=== PATIENT | female | born 1940 | race Caucasian/White ===

== ENCOUNTER 2018-11-12 00:12 | Outpatient (CLI) | payer MEDICARE, SELFPAY ==
--- NOTE | 2018-11-12 08:00 | DI.MAMMO_ITS ---
SYMPTOM/DIAGNOSIS: SCREENING, Z12.31 MAMMOGRAMS: Mammograms were interpreted according to the usual protocol including computer analysis with CAD system, tomosynthesis and C view imaging. Comparison is made with prior examinations. Breast density, Category A. No suspicious masses or microcalcifications are seen. There has been no significant change compared to the prior examinations. IMPRESSION: No evidence for malignancy. Yearly mammography is recommended. Category 1. MQSA ASSESSMENT OF FINDINGS: Negative. Category 1. Patient will receive a letter notifying them of these results. BI-RAD category A. The breasts are almost entirely fatty.
== END 2018-11-12 00:32 ==
PROVIDERS: PCP Family Medicine; Visit Provider Family Medicine
DX: Z12.31 Encounter for screening mammogram for malignant neoplasm of breast (principal)
CPT/HCPCS: 77063; 77067

== ENCOUNTER 2019-08-24 02:28 | Outpatient (CLI) | payer MEDICARE, SELFPAY ==
[2019-08-24 11:23] LABS: ALT 27 U/L (14-59); AST 16 U/L (15-37); Albumin 4.2 g/dL (3.4-5.0); Alkaline Phosphatase 66 U/L (46-116); Anion Gap 9.6 mmol/L (3-11); BUN 19 mg/dL (7-18); Bilirubin, Total 0.5 mg/dL (0.2-1.0); CO2 27.4 mmol/L (21.0-32.0); CREATININE 1.42 mg/dL (0.55-1.02); Calcium 9.3 mg/dL (8.5-10.1); Calculated LDL 50 mg/dL; Chloride 105 mmol/L (98-107); Cholesterol 149 mg/dL (50-200); Estimated GFR 35.78 (mL/min/1.73m2); Glucose 90 mg/dL (70-100); HDL Cholesterol 74 mg/dL (40-60); Potassium 4.7 mmol/L (3.5-5.1); Sodium 142 mmol/L (136-145); Triglyceride 128 mg/dL (30-150)
== END 2019-08-24 02:48 ==
PROVIDERS: PCP Family Medicine; Visit Provider Family Medicine
DX: I10 Essential (primary) hypertension (principal)
CPT/HCPCS: 36415; 80053; 80061

== ENCOUNTER 2020-07-20 07:30 | Outpatient (CLI) | payer MEDICARE, SELFPAY ==
[2020-07-23 06:01] LABS: Patient Race White; SARS-CoV-2 RNA Undetected (Undetected); SARS-CoV-2 Specimen Source Nasopharynx
== END 2020-07-20 07:50 ==
PROVIDERS: PCP Family Medicine; Visit Provider Nurse Practitioner
DX: R50.9 Fever, unspecified (principal); J34.89 Other specified disorders of nose and nasal sinuses; Z11.59 Encounter for screening for other viral diseases
CPT/HCPCS: U0003

== ENCOUNTER 2020-07-26 21:47 | Outpatient (REF) | payer MEDICARE, SELFPAY ==
[2020-07-26 21:09] LABS: HCT 38.6 % (36.0-46.0); HGB 12.9 g/dL (11.2-15.7); MCH 30.6 pg (27.0-33.0); MCHC 33.4 % (32.0-36.0); MCV 91.7 fL (80-95); MPV 10.3 fL (8.0-11.0); Platelet Count 240 10^3/uL (130-400); RBC 4.21 10^6/uL (3.93-5.22); RDW-SD 43.6 fL; WBC 9.18 10^3/uL (4.4-10.8)
== END 2020-07-26 22:07 ==
LOC: LBN 21:47
PROVIDERS: PCP Family Medicine; Visit Provider Nurse Practitioner Family
DX: I10 Essential (primary) hypertension (principal); D53.9 Nutritional anemia, unspecified; E78.5 Hyperlipidemia, unspecified
CPT/HCPCS: 80048; 80061; 85027

== ENCOUNTER 2020-08-16 04:12 | Outpatient (CLI) | payer MEDICARE, SELFPAY ==
[2020-08-16 08:51] LABS: Anion Gap 11.9 mmol/L (3-11); BUN 32 mg/dL (7-18); CO2 23.1 mmol/L (21.0-32.0); CREATININE 1.61 mg/dL (0.55-1.02); Calcium 9.2 mg/dL (8.5-10.1); Calculated LDL 57 mg/dL (<100); Chloride 106 mmol/L (98-107); Cholesterol 158 mg/dL (<200); Estimated GFR 30.87 (mL/min/1.73m2); Glucose 79 mg/dL (74-106); HDL Cholesterol 58 mg/dL (40-60); Potassium 4.1 mmol/L (3.5-5.1); Sodium 141 mmol/L (136-145); Triglyceride 216 mg/dL (<150)
[2020-08-16 08:52] LABS: COMMENT (LAB VIEW ONLY) 140.75 mg/dL; Microalb ug/mg Crea 9.8 ug/mg Cr
== END 2020-08-16 04:32 ==
PROVIDERS: Nurse Practitioner Family; PCP Family Medicine; Visit Provider Family Medicine
DX: I10 Essential (primary) hypertension (principal); E78.5 Hyperlipidemia, unspecified
CPT/HCPCS: 36415; 80048; 80061; 82043; 82570

== ENCOUNTER 2021-07-18 01:44 | Outpatient (CLI) | payer MEDICARE, SELFPAY ==
[2021-07-18 08:55] LABS: Bilirubin Negative (Negative); Blood Negative (Negative); Clarity Clear (Clear); Glucose Negative (Negative); Ketones Negative (Negative); Leukocyte Esterase Moderate (Negative); Nitrite Negative (Negative); Urobilinogen 0.2 EU/dL (Up TO 0.2); pH 5.5 (5-8)
[2021-07-18 10:07] LABS: ALT 27 U/L (14-59); AST 15 U/L (15-37); Albumin 4.4 g/dL (3.4-5.0); Alkaline Phosphatase 62 U/L (46-116); BUN 32 mg/dL (7-18); Bilirubin, Total 0.5 mg/dL (0.2-1.0); CREATININE 1.5 mg/dL (0.55-1.02); Calcium 9.1 mg/dL (8.5-10.1); Calculated LDL 55 mg/dL (<100); Chloride 105 mmol/L (98-107); Cholesterol 161 mg/dL (<200); Estimated GFR 33.41 (mL/min/1.73m2); Glucose 82 mg/dL (74-106); HDL Cholesterol 67 mg/dL (40-60); Potassium 4.3 mmol/L (3.5-5.1); Sodium 141 mmol/L (136-145); Total Protein 7.3 g/dL (6.4-8.2); Triglyceride 197 mg/dL (<150)
== END 2021-07-18 01:45 | disposition home or self-care (01) ==
LOC: LBO 01:44
PROVIDERS: PCP Family Medicine; Visit Provider Family Medicine
DX: N18.9 Chronic kidney disease, unspecified (principal); I10 Essential (primary) hypertension; E78.5 Hyperlipidemia, unspecified; D53.9 Nutritional anemia, unspecified; R82.998 Other abnormal findings in urine
CPT/HCPCS: 36415; 80053; 80061; 81003; 81015; 87086

== ENCOUNTER 2021-08-22 01:35 | Outpatient (CLI) | payer MEDICARE, SELFPAY ==
--- NOTE | 2021-08-22 07:00 | DI.RAD_ITS ---
Exam(s) XR LUMBAR SPINE COMPLETE EXAM: XR LUMBAR SPINE COMPLETE CLINICAL HISTORY: increased low back pain x 1year,M54.50. TECHNIQUE: 2D digital imaging was performed. COMPARISON: No exams were available for comparison FINDINGS: There is osteopenia. No compression fractures but there is advanced anterolisthesis of L5 upon S1, w ith approximately 2.3 cm anterior slippage of L5 upon S1. Also advanced disc space narrowing at L5-S 1 level. There is also mild disc space narrowing at L2-3 level. Multilevel degenerative facet joint changes. Some degenerative changes in the SI joints but no ankylosis. IMPRESSION: Advanced anterolisthesis of L5 upon S1 noted. 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 DATA REPOSITORY: RADIATION DOSE DELIVERED:
--- NOTE | 2021-08-22 07:55 | DI.MAMMO_ITS ---
Exam(s) MAMMO SCREENING EXAM: MAMMO SCREENING CLINICAL HISTORY: screening,Z12.39. TECHNIQUE: Bilateral full field digital CC and MLO mammographic images were obtained with 3D tomosyn thesis and utilizing computer aided detection (CAD). COMPARISON: Prior mammograms dating back to 2011, the most recent being October 2018. FINDINGS: There are no CAD designations. Asymmetric densities in the left breast are unchanged from prior studies. There are no new spiculated masses nor malignant appearing microcalcification groups. There is no significant architectural distortion nor skin thickening-retraction. IMPRESSION: No radiographic evidence of malignancy. BI-RADS Category 1 - Negative Breast Density - Category B - Scattered areas of fibroglandular density Breast density Category C or D implies that the patient has dense breast tissue. Dense breast tissue can make it harder to find cancer on a mammogram. Dense breast tissue is also associated with an incr eased risk of breast cancer. This information about the result of the mammogram report was provided to the patient to raise their awareness. Use this report when you speak with the patient about their risks for breast cancer, which includes their family history. At that time, you may recommend additional screening tests (Ultrasoun d or MRI) as these tests may add significant information. A negative radiographic report should not delay biopsy if a dominant or clinically suspicious mass is present. Up to ten percent of cancers are not identified on mammography. A negative report may reinforce clinical impression. Adenosis and dense breasts may obscure an underlying neoplasm. False positive reports average 6 to 10%. Patient will receive a letter notifying them of these results.
== END 2021-08-22 01:55 ==
PROVIDERS: PCP Family Medicine; Visit Provider Family Medicine
DX: G89.29 Other chronic pain (principal); M54.59 Other low back pain; Z12.31 Encounter for screening mammogram for malignant neoplasm of breast; M43.17 Spondylolisthesis, lumbosacral region
CPT/HCPCS: 77063; 77067; 72110

== ENCOUNTER 2022-06-17 03:03 | Outpatient (CLI) | payer MEDICARE, SELFPAY ==
[2022-06-17 08:44] LABS: HCT 37.1 % (36.0-46.0); HGB 12.8 g/dL (11.2-15.7); MCH 31.2 pg (27.0-33.0); MCHC 34.5 % (32.0-36.0); MCV 91 fL (80-95); MPV 9.7 fL (8.0-11.0); Platelet Count 216 10^3/uL (130-400); RDW 12.5 % (11.7-14.6); RDW-SD 41.3 fL; WBC 9.04 10^3/uL (4.4-10.8)
[2022-06-17 09:28] LABS: ALT 24 U/L (14-59); AST 19 U/L (15-37); Albumin 4.2 g/dL (3.4-5.0); Alkaline Phosphatase 63 U/L (46-116); Anion Gap 12.1 mmol/L (3-11); BUN 35 mg/dL (7-18); Bilirubin, Total 0.4 mg/dL (0.2-1.0); CO2 23.9 mmol/L (21.0-32.0); CREATININE 1.7 mg/dL (0.55-1.02); Calcium 9.4 mg/dL (8.5-10.1); Chloride 106 mmol/L (98-107); Estimated GFR 28.85 (mL/min/1.73m2); Glucose 93 mg/dL (74-106); Potassium 4.4 mmol/L (3.5-5.1); Sodium 142 mmol/L (136-145); Total Protein 7.6 g/dL (6.4-8.2)
== END 2022-06-17 03:04 | disposition home or self-care (01) ==
PROVIDERS: PCP Family Medicine; Visit Provider Family Medicine
DX: N18.9 Chronic kidney disease, unspecified (principal); K51.90 Ulcerative colitis, unspecified, without complications
CPT/HCPCS: 36415; 80053; 85027

== ENCOUNTER 2022-08-11 03:28 | Outpatient (CLI) | payer MEDICARE, SELFPAY ==
[2022-08-11 16:46] LABS: PROTEIN 13.7 mg/dL (0.0-11.9)
== END 2022-08-11 03:29 | disposition home or self-care (01) ==
LOC: LBO 03:29
PROVIDERS: PCP Family Medicine; Visit Provider Family Medicine
DX: N18.4 Chronic kidney disease, stage 4 (severe) (principal)
CPT/HCPCS: 84156

== ENCOUNTER 2022-08-18 02:50 | Outpatient (CLI) | payer MEDICARE, SELFPAY ==
[2022-08-18 12:39] LABS: Magnesium 1.8 mg/dL (1.8-2.4); PHOSPHORUS 3.9 mg/dL (2.6-4.7)
[2022-08-18 12:55] LABS: Bilirubin Negative (Negative); Blood Negative (Negative); Clarity Sl Cloudy (Clear); Glucose Negative (Negative); Ketones Negative (Negative); Leukocyte Esterase Small (Negative); Nitrite Positive (Negative); Specific Gravity 1.025 (1.005-1.025); Urobilinogen 0.2 EU/dL (Up TO 0.2); pH 5.5 (5-8)
[2022-08-18 12:56] LABS: Bacteria Moderate HPF (Negative); C & S Indicated? Yes; Casts Negative LPF (Negative); Crystals Negative HPF (Negative); Epithelial Cells Few HPF (Negative); Mucus Negative (Negative); RBC Negative HPF (0-2)
[2022-08-18 13:16] LABS: Vitamin D 25 Total 24.2 ng/mL (30-100)
[2022-08-18 23:31] LABS: Parathyroid Hormone,Intact 62 pg/mL (19-88)
[2022-08-22 17:12] LABS: 1,25-Dihydroxyvitamin D 28 pg/mL (18-78)
== END 2022-08-18 02:51 | disposition home or self-care (01) ==
LOC: LOS 02:50
PROVIDERS: PCP Family Medicine; Visit Provider Family Medicine
DX: I12.9 Hypertensive chronic kidney disease with stage 1 through stage 4 chronic kidney disease, or unspecified chronic kidney disease (principal); N18.4 Chronic kidney disease, stage 4 (severe); R30.0 Dysuria
CPT/HCPCS: 36415; 82306; 87077; 81003; 81015; 82652; 83735; 83970; 84100; 87086; 87186

== ENCOUNTER 2022-09-17 03:25 | Outpatient (CLI) | payer MEDICARE, SELFPAY ==
[2022-09-17 12:28] LABS: Bilirubin Negative (Negative); Blood Negative (Negative); Clarity Clear (Clear); Glucose Negative (Negative); Ketones Negative (Negative); Leukocyte Esterase Trace (Negative); Nitrite Negative (Negative); Specific Gravity >= 1.030 (1.005-1.025); Urobilinogen 0.2 EU/dL (Up TO 0.2); pH 5.5 (5-8)
[2022-09-17 12:30] LABS: Anion Gap 8.2 mmol/L (3-11); BUN 33 mg/dL (7-18); CO2 24.8 mmol/L (21.0-32.0); CREATININE 1.8 mg/dL (0.55-1.02); Chloride 104 mmol/L (98-107); Estimated GFR 27.96 (mL/min/1.73m2); Glucose 87 mg/dL (74-106); Potassium 4.7 mmol/L (3.5-5.1); Sodium 137 mmol/L (136-145)
[2022-09-17 12:37] LABS: Bacteria Rare HPF (Negative); C & S Indicated? Yes; Casts Negative LPF (Negative); Crystals Negative HPF (Negative); Epithelial Cells Few HPF (Negative); Mucus Negative (Negative); RBC Negative HPF (0-2); WBC 0-2 HPF (0-5)
== END 2022-09-17 03:26 | disposition home or self-care (01) ==
LOC: LOS 03:25
PROVIDERS: PCP Family Medicine; Visit Provider Family Medicine
DX: I10 Essential (primary) hypertension (principal); I12.9 Hypertensive chronic kidney disease with stage 1 through stage 4 chronic kidney disease, or unspecified chronic kidney disease; N18.4 Chronic kidney disease, stage 4 (severe); R30.0 Dysuria
CPT/HCPCS: 36415; 80048; 87077; 81003; 81015; 87086; 87186

== ENCOUNTER 2023-03-06 01:51 | Outpatient (CLI) | payer MEDICARE, SELFPAY ==
[2023-03-06 11:51] LABS: Abs Immature Grans 0.04 10^3/uL (0.0-0.06); Absolute Basophil Count 0.07 10^3/uL (0.0-0.2); Absolute Eosinophil Count 0.94 10^3/uL (0.0-0.7); Absolute Monocyte Count 0.66 10^3/uL (0.1-0.8); Absolute Neutrophil Count 5.79 10^3/uL (1.2-6.7); Basophils % 0.7; Eosinophils % 9.2; HCT 35.8 % (36.0-46.0); HGB 11.8 g/dL (11.2-15.7); Immature Grans % 0.4; Lymphocytes % 26.5; MCH 31.1 pg (27.0-33.0); MCV 94 fL (80-95); MPV 9.4 fL (8.0-11.0); Monocytes % 6.5; Neutrophils % 56.7; Platelet Count 216 10^3/uL (130-400); RDW 12.3 % (11.7-14.6); RDW-SD 42.6 fL
[2023-03-06 12:39] LABS: ALT 21 U/L (14-59); AST 20 U/L (15-37); Albumin 4.2 g/dL (3.4-5.0); Alkaline Phosphatase 73 U/L (46-116); BUN 44 mg/dL (7-18); Bilirubin, Total 0.2 mg/dL (0.2-1.0); Calcium 9.3 mg/dL (8.5-10.1); Chloride 103 mmol/L (98-107); Estimated GFR 24.48 (mL/min/1.73m2); Glucose 95 mg/dL (74-106); Potassium 4.4 mmol/L (3.5-5.1); Sodium 141 mmol/L (136-145); Total Protein 7.4 g/dL (6.4-8.2)
== END 2023-03-06 01:52 | disposition home or self-care (01) ==
PROVIDERS: PCP Family Medicine; Visit Provider Family Medicine
DX: I12.9 Hypertensive chronic kidney disease with stage 1 through stage 4 chronic kidney disease, or unspecified chronic kidney disease (principal); N18.4 Chronic kidney disease, stage 4 (severe)
CPT/HCPCS: 36415; 80053; 85025

== ENCOUNTER 2023-03-18 09:34 | Outpatient (CLI) | payer MEDICARE, SELFPAY ==
[2023-03-18 09:44] VITALS: BP 149/71; PULSE 71; RESP 20; TEMP 36.8; O2SAT 96
--- NOTE | 2023-03-18 10:38 | DI.RAD_ITS ---
Exam(s) XR PAIN CLINIC LUMBAR SP 2V EXAM: XR PAIN CLINIC LUMBAR SP 2V CLINICAL HISTORY: Dx: Lumbar Spondylosis TECHNIQUE: 2D and realtime digital imaging was performed. Radiologist not present. CONTRAST MATERIAL: None. COMPARISON: No exams were available for comparison FINDINGS: Fluoroscopy was provided for pain management therapy. Please refer to procedure report or details. Radiation Exposure Index: Ka,r=13.6 mGy IMPRESSION: As above. RADIATION DOSE DELIVERED:
[2023-03-18 10:47] VITALS: BP 134/67; PULSE 62; RESP 11; O2SAT 95
[2023-03-18] MEDS: Bupivacaine 0.5% Pres-Free 10 ML VIAL IJ (10:49)
[2023-03-18] MEDS: Omnipaque 240 MG/ML 50 ML BTL IJ (10:49)
--- NOTE | 2023-03-18 14:09 | PDOC.PAIN_ITS ---
Date of service: 03/18/23 Time of Service: 11:00 Pain Managment Procedure Note Procedure Note Procedure Note: Lumbar/Sacral Medial Branch Blocks Yesica Gonzales has been referred to the [facility] for lumbar/sacral medial branch blocks. COMMENTS: I previously evaluated her in the clinic. Pre-procedure pain VAS was 7/10 Dx: Lumbosacral spondylosis without myelopathy Patient was interviewed and the medical record reviewed. There were no medical, pharmacologic, radiographic or other structural contraindications to attempting fluoroscopically guided local anesthetic lumbar/sacral medial branch blocks. Risks and expected side effects as well as potential benefit of the procedure were reviewed and voiced concerns addressed. The printed consent form was signed and witnessed. Standard time-out procedure was performed. Patient was placed in the prone position on the fluoroscopy table and automated blood pressure cuff and pulse oximeter applied. The skin entry points for approaching the anatomic target points of the segmental medial branches of bilateral LL2-L4 were identified with anfluoroscopy and marked. Following thorough Chlorhexadine preparation of the skin and draping, a 25 gauge 3.5 spinal needle was placed under fluoroscopic guidance down on to the target point for each respective segmental medial branch.Position was confirmed in A/P, oblique and lateral views with 0.25ml of omnipaque 240. At this point I injected 0.5ml of 0.5% Bupivacaine at each segmental sensory nerve. Vital signs were stable throughout the procedure and were as recorded in the docflowsheet by the nursing staff. Follow up plans and appointments were discussed and was instructed to keep careful note of how the usual pain was modified by these injections. Specifically was asked to keep a pain diary for the next 4 hours using a numeric pain scale of 0-10 and report these results at the follow-up visit. Post procedure instruction was given as documented in the nursing documentation and having met discharge criteria. Patient was discharged from the [facility]. Based on the medial branches blocked today, if the patient has adequate relief and we are able to proceed to radiofrequency ablation, the treatment should result in the denervation of the bilateral L3-L4 and L4-L5 FACET JOINTS. We would expect to denervate a total of 4 facets during the radiofrequency ablation. COMMENTS: Post-procedure pain VAS was 0/10. Sánchez Boyce DO, MPH [facility]-Pain Management [facility] CC: Leda Saucedo
== END 2023-03-18 09:35 | disposition home or self-care (01) ==
LOC: PC 09:34
PROVIDERS: PCP Family Medicine; Visit Provider Preventive Medicine Occupational Medicine
DX: M47.817 Spondylosis without myelopathy or radiculopathy, lumbosacral region (principal); M54.50 Low back pain, unspecified
CPT/HCPCS: 64493; 64494; 72100; Q9967

== ENCOUNTER 2023-04-01 10:27 | Outpatient (CLI) | payer MEDICARE, SELFPAY ==
--- NOTE | 2023-04-01 06:00 | DI.RAD_ITS ---
Exam(s) XR PAIN CLINIC LUMBAR SP 2V EXAM: XR PAIN CLINIC LUMBAR SP 2V CLINICAL HISTORY: Dx: Lumbar Spondylosis TECHNIQUE: 2D and realtime digital imaging was performed. CONTRAST MATERIAL: Refer to procedure report. COMPARISON: No exams were available for comparison FINDINGS: Fluoroscopy was provided for Dr. Boyce during pain treatment. Please refer to the procedure report f or complete details. Ka,r=17.0 mGy IMPRESSION:
[2023-04-01 10:34] VITALS: BP 125/67; PULSE 69; RESP 20; TEMP 36.6; O2SAT 95
[2023-04-01] MEDS: Omnipaque 240 MG/ML 50 ML BTL IJ (11:23)
[2023-04-01] MEDS: Lidocaine 2% Pres-Free 5 ML VIAL IJ (11:23)
[2023-04-01 11:24] VITALS: BP 121/66; PULSE 60; RESP 12; O2SAT 94
--- NOTE | 2023-04-01 14:04 | PDOC.PAIN_ITS ---
Date of service: 04/01/23 Time of Service: 11:00 Pain Managment Procedure Note Procedure Note Procedure Note: Lumbar/Sacral Medial Branch Blocks #2 Yesica Gonzales has been referred to the [facility] for lumbar/sacral medial branch blocks. COMMENTS: She did very well with her first LMBB. Pre-procedure pain VAS was 7/10. Dx: Lumbosacral spondylosis without myelopathy Patient was interviewed and the medical record reviewed. There were no medical, pharmacologic, radiographic or other structural contraindications to attempting fluoroscopically guided local anesthetic lumbar/sacral medial branch blocks. Risks and expected side effects as well as potential benefit of the procedure were reviewed and voiced concerns addressed. The printed consent form was signed and witnessed. Standard time-out procedure was performed. Patient was placed in the prone position on the fluoroscopy table and automated blood pressure cuff and pulse oximeter applied. The skin entry points for approaching the anatomic target points of the segmental medial branches of bilateral L2-L4 were identified with anfluoroscopy and marked. Following thorough Chlorhexadine preparation of the skin and draping, a 25 gauge 3.5 spinal needle was placed under fluoroscopic guidance down on to the target point for each respective segmental medial branch.Position was confirmed in A/P, oblique and lateral views with 0.25ml of omnipaque 240. At this point I injected 0.5cc of 2% Lidocaine at each segmental sensory nerve. Vital signs were stable throughout the procedure and were as recorded in the docflowsheet by the nursing staff. Follow up plans and appointments were discussed and was instructed to keep careful note of how the usual pain was modified by these injections. Specifically was asked to keep a pain diary for the next 4 hours using a numeric pain scale of 0-10 and report these results at the follow-up visit. Post procedure instruction was given as documented in the nursing documentation and having met discharge criteria. Patient was discharged from the [facility] Management [facility]. Based on the medial branches blocked today, if the patient has adequate relief and we are able to proceed to radiofrequency ablation, the treatment should result in the denervation of the bilateral L3-L4 and L4-L5 FACET JOINTS. We would expect to denervate a total of 4 facets during the radiofrequency ablation. COMMENTS: Post-procedure pain VAS was 0/10 Sánchez Boyce DO, MPH [facility]-Pain Management [facility]-Center for [facility] Management CC: Leda Saucedo
== END 2023-04-01 10:28 | disposition home or self-care (01) ==
LOC: PC 10:27
PROVIDERS: PCP Family Medicine; Visit Provider Preventive Medicine Occupational Medicine
DX: M47.817 Spondylosis without myelopathy or radiculopathy, lumbosacral region (principal); M54.50 Low back pain, unspecified
CPT/HCPCS: 64493; 64494; 72100; Q9967

== ENCOUNTER 2023-04-15 12:38 | Outpatient (CLI) | payer MEDICARE, SELFPAY ==
[2023-04-15 12:48] VITALS: BP 135/74; PULSE 65; RESP 20; TEMP 36.8; O2SAT 95
[2023-04-15] MEDS: Midazolam 2 MG/2 ML VIAL IVP (13:20)
[2023-04-15] MEDS: fentaNYL 100 MCG/2 ML VIAL IVP (13:20)
[2023-04-15 13:53] VITALS: BP 141/69; PULSE 63; RESP 13; O2SAT 97
--- NOTE | 2023-04-15 13:58 | DI.RAD_ITS ---
Exam(s) XR PAIN CLINIC LUMBAR SP 2V EXAM: XR PAIN CLINIC LUMBAR SP 2V CLINICAL HISTORY: Dx: Lumbar Spondylosis TECHNIQUE: 2D and realtime digital imaging was performed. CONTRAST MATERIAL: Refer to procedure report. COMPARISON: No exams were available for comparison FINDINGS: Fluoroscopy was provided for Dr. Boyce during the performance of a radiofrequency ablation. Please r efer to the procedure report for complete details. Ka,r=14.7 mGy IMPRESSION:
[2023-04-15] MEDS: Lidocaine 2% Pres-Free 5 ML VIAL IJ (14:07)
[2023-04-15] MEDS: methylPREDNISolone ACETATE 40 MG/ML VIAL IJ (14:08)
[2023-04-15] MEDS: Bupivacaine 0.5% Pres-Free 10 ML VIAL IJ (14:08)
--- NOTE | 2023-04-15 14:59 | PDOC.PAIN ---
Date of service: 04/15/23 Time of Service: 15:01 Pain Managment Procedure Note Procedure Note Procedure Note: PROCEDURE NOTE Lumbar Radiofrequency Ablation Bilateral Lumbar Radiofrequency with Avanos Machine Date of Service: April 15, 2023 Patient: Yesica Gonzales Provider: Sánchez Boyce DO, MPH Pre Operative Diagnosis: Lumbosacral Spondylosis without Myelopathy Post Operative Diagnosis: Same Pre procedure pain; VAS= 7/10 PROCEDURE: Radiofrequency Ablation of medial branches - bilateral L2, L3, and L4. Yesica was brought into the fluoroscopy suite and positioned into the prone position on the fluoroscopy table and allowed to adjust to a position of comfort. A grounding pad was placed on the left abdomen. The lumbar region was widely prepped with a chloraprep solution, allowed to air dry and draped in standard sterile surgical fashion. Local anesthesia was provided by 5 mL of 2 % Lidocaine delivered with a 25g needle. A 17g 100 mm radiofrequency introducer needle was placed to the planned anatomic targets guided with intermittent fluoroscopy with a perpendicular approach to terminally place at the junction of the superior articular process and the transverse process of the bilateral L3, L4, and L5. The stylets were removed and radiofrequency probes with a 4mm active tip were then inserted. Needle tip position of the probes was verified in the AP, oblique, and lateral views. At each site, the medial branch nerve was stimulated at 2 Hz to a maximum 1-2 volts determined to finalize safe needle and electrode placement. The patient was awake and responsive during this portion of the procedure. Each target was anesthetized with 1-2 mL of 2 % Lidocaine for anesthesia for lesioning and then each target was lesioned at 80 degrees Celsius for 2 minutes and 30 seconds. Tissue impedances were noted to be between 250 and 500 Ohms. Electrodes and needles were then removed and bandages placed over the needle placement sites, the patient was observed and was without hemodynamic, neurologic, or allergic reactions. Fluoroscopic images were digitally archived. POST PROCEDURE EVALUATION: IMPRESSION: 1. Summary of procedure. Medication given is documented in the MAR. 2. RTC as needed. Follow up plan: Patient to contact [facility] as needed.? This procedure may be repeated if the patient achieves at least 50% improvement in pain/function for at least 6 months. 3. Estimated Blood Loss: <5 mls 4. Fluoroscopy time: Documented in the EMR. Follow up plans and appointments were discussed with the Yesica. Post procedure instruction was given as documented in nursing documentation and having met discharge criteria, Yesica was discharged from the [facility]. COMMENTS: No apparent complications. Post-procedure pain: VAS= 0/10. I personally completed the entire procedure. SÁNCHEZ BOYCE DO, MPH [facility] - Subspecialty board certification in Pain Medicine [facility] [facility]
== END 2023-04-15 12:39 | disposition home or self-care (01) ==
LOC: PC 12:38
PROVIDERS: PCP Family Medicine; Visit Provider Preventive Medicine Occupational Medicine
DX: M47.817 Spondylosis without myelopathy or radiculopathy, lumbosacral region (principal); M54.50 Low back pain, unspecified
CPT/HCPCS: 64635; 64636; 72100; J1030; J2250; J3010

== ENCOUNTER 2023-04-29 02:45 | Outpatient (CLI) | payer MEDICARE, SELFPAY ==
[2023-04-29 16:01] LABS: Anion Gap 14.4 mmol/L (3-11); BUN 36 mg/dL (7-18); CO2 21.6 mmol/L (21.0-32.0); CREATININE 1.7 mg/dL (0.55-1.02); Calcium 9.9 mg/dL (8.5-10.1); Chloride 106 mmol/L (98-107); Estimated GFR 29.76 (mL/min/1.73m2); Glucose 88 mg/dL (74-106); Potassium 5.2 mmol/L (3.5-5.1); Sodium 142 mmol/L (136-145)
== END 2023-04-29 02:46 | disposition home or self-care (01) ==
LOC: LBO 02:46
PROVIDERS: PCP Family Medicine; Visit Provider Family Medicine
DX: I12.9 Hypertensive chronic kidney disease with stage 1 through stage 4 chronic kidney disease, or unspecified chronic kidney disease; N18.4 Chronic kidney disease, stage 4 (severe)
CPT/HCPCS: 80048

== ENCOUNTER 2023-06-26 03:27 | Outpatient (CLI) | payer MEDICARE, SELFPAY ==
[2023-06-26 12:02] LABS: Abs Immature Grans 0.03 10^3/uL (0.0-0.06); Absolute Basophil Count 0.08 10^3/uL (0.0-0.2); Absolute Eosinophil Count 0.34 10^3/uL (0.0-0.7); Absolute Lymphocyte Count 2.26 10^3/uL (1.2-3.4); Absolute Monocyte Count 0.53 10^3/uL (0.1-0.8); Basophils % 0.9; Eosinophils % 3.8; HCT 38.1 % (36.0-46.0); HGB 12.6 g/dL (11.2-15.7); Immature Grans % 0.3; Lymphocytes % 25.3; MCH 30.4 pg (27.0-33.0); MCHC 33.1 % (32.0-36.0); MCV 92 fL (80-95); MPV 9.1 fL (8.0-11.0); Monocytes % 5.9; Neutrophils % 63.8; Platelet Count 266 10^3/uL (130-400); RBC 4.14 10^6/uL (3.93-5.22); RDW 12.6 % (11.7-14.6); RDW-SD 42.8 fL; WBC 8.94 10^3/uL (4.4-10.8)
[2023-06-26 12:29] LABS: ALT 24 U/L (14-59); AST 19 U/L (15-37); Albumin 4.2 g/dL (3.4-5.0); Alkaline Phosphatase 73 U/L (46-116); Anion Gap 12.7 mmol/L (3-11); BUN 39 mg/dL (7-18); Bilirubin, Total 0.4 mg/dL (0.2-1.0); CO2 22.3 mmol/L (21.0-32.0); CREATININE 1.6 mg/dL (0.55-1.02); Calcium 9.7 mg/dL (8.5-10.1); Chloride 105 mmol/L (98-107); Glucose 94 mg/dL (74-106); Magnesium 1.9 mg/dL (1.8-2.4); PHOSPHORUS 4.8 mg/dL (2.6-4.7); Sodium 140 mmol/L (136-145); Total Protein 7.5 g/dL (6.4-8.2)
[2023-06-26 12:52] LABS: Ferritin 130 ng/mL (8-252)
[2023-06-29 09:11] LABS: Parathyroid Hormone,Intact 47 pg/mL (19-88)
== END 2023-06-26 03:28 | disposition home or self-care (01) ==
PROVIDERS: PCP Family Medicine; Visit Provider Family Medicine
DX: N18.4 Chronic kidney disease, stage 4 (severe) (principal); I10 Essential (primary) hypertension; E87.5 Hyperkalemia
CPT/HCPCS: 36415; 80053; 82306; 82652; 82728; 83735; 83970; 84100; 85025

== ENCOUNTER → 2023-08-05 00:37 | Outpatient (CLI) | payer MEDICARE, SELFPAY ==
--- NOTE | 2023-08-05 | DI.US_ITS ---
Exam(s) US RENAL EXAM: US RENAL CLINICAL HISTORY: CHRONIC KIDNEY DISEASE, N18.9, CKD EVAL. TECHNIQUE: Martin scale, color and spectral Doppler were used. COMPARISON: No exams were available for comparison FINDINGS: Renal size in cm: Right: 9.3 left: 9.1 Echogenicity: Normal Hydronephrosis: No Cyst or mass: No Nephrolithiasis: No Bladder:The not well evaluated. Not well distended. Prevoid vol:50 cc Postvoid vol:44 cc IMPRESSION: No evidence of hydronephrosis or renal calculi. DATA REPOSITORY:
== END ==
PROVIDERS: PCP Family Medicine; Visit Provider Internal Medicine
DX: N18.9 Chronic kidney disease, unspecified (principal)
CPT/HCPCS: 76770

== ENCOUNTER 2023-12-16 01:40 | Outpatient (CLI) | payer MEDICARE, SELFPAY ==
[2023-12-16 10:18] LABS: Anion Gap 13.8 mmol/L (3-11); BUN 41 mg/dL (7-18); CO2 21.2 mmol/L (21.0-32.0); CREATININE 1.8 mg/dL (0.55-1.02); Calcium 10.1 mg/dL (8.5-10.1); Chloride 105 mmol/L (98-107); Estimated GFR 27.61 (mL/min/1.73m2); Glucose 97 mg/dL (74-106); Potassium 4.6 mmol/L (3.5-5.1); Sodium 140 mmol/L (136-145); Uric Acid 8.6 mg/dL (2.6-6.0)
[2023-12-16 13:28] LABS: Lab Add On Test DONE
[2023-12-16 14:03] LABS: Vitamin D 25 Total 34.4 ng/mL (30-100)
== END 2023-12-16 01:41 | disposition home or self-care (01) ==
PROVIDERS: PCP Family Medicine; Visit Provider Internal Medicine
DX: I12.9 Hypertensive chronic kidney disease with stage 1 through stage 4 chronic kidney disease, or unspecified chronic kidney disease (principal); N18.32 Chronic kidney disease, stage 3b; E79.0 Hyperuricemia without signs of inflammatory arthritis and tophaceous disease
CPT/HCPCS: 36415; 80048; 82306; 84550

== ENCOUNTER 2024-08-19 19:11 | Outpatient (REF) | payer MEDICARE, SELFPAY ==
[2024-08-19 14:06] LABS: Bilirubin Negative (Negative); Blood Trace-intact (Negative); Clarity Cloudy (Clear); Glucose Negative (Negative); Ketones Negative (Negative); Leukocyte Esterase Large (Negative); Nitrite Positive (Negative); Specific Gravity 1.015 (1.005-1.025); Urobilinogen 0.2 mg/dL (Up to 0.2); pH 6.5 (5-8)
[2024-08-19 14:14] LABS: Bacteria Many HPF (Negative); C & S Indicated? C&S Done As Ordered; Casts 0-2 Hyaline LPF (Negative); Crystals Negative HPF (Negative); Epithelial Cells Few HPF (Negative); Mucus Negative (Negative); RBC 0-2 HPF (0-2); WBC >50 HPF (0-5)
== END 2024-08-19 19:12 | disposition home or self-care (01) ==
LOC: LBN 19:11
PROVIDERS: PCP Family Medicine; Visit Provider Family Medicine
DX: R30.0 Dysuria (principal); N39.0 Urinary tract infection, site not specified; N95.9 Unspecified menopausal and perimenopausal disorder; I10 Essential (primary) hypertension; H35.3290 Exudative age-related macular degeneration, unspecified eye, stage unspecified; H26.9 Unspecified cataract; I12.9 Hypertensive chronic kidney disease with stage 1 through stage 4 chronic kidney disease, or unspecified chronic kidney disease; N18.32 Chronic kidney disease, stage 3b
CPT/HCPCS: 87077; 81003; 81015; 87086; 87186

== ENCOUNTER 2025-02-02 01:18 | Outpatient (CLI) | payer MEDICARE, SELFPAY ==
--- NOTE | 2025-02-02 08:30 | DI.DEXA_ITS ---
Exam(s) XR DEXA BONE DENSITY W/WO SADIE EXAM: XR DEXA BONE DENSITY W/WO SADIE CLINICAL HISTORY: Screening, MENOPAUSAL DISORDER, N95.9 TECHNIQUE: COMPARISON: CR CHEST 2 VIEWS PA,LAT from 04/08/2018 CR XR LUMBAR SPINE COMPLETE from 08/22/2021 FINDINGS: Lateral Spine Image: The thoracic spine is difficult to visualize on the lateral image. No compressi on deformities are seen in the lumbar spine. Left hip: Total T-Score: -2.9 Total Z-Score: -0.6 T- and Z-scores: Findings are consistent with osteoporosis. Lumbar Spine: Total T-Score: -1.2 Total Z-Score: 1.7 T- and Z-scores: Findings are consistent with osteopenia. There is osteoporosis seen in the left forearm with a total T-score of -3.9 and a Z-score of -0.4. 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
== END 2025-02-02 01:38 ==
LOC: DI 01:18
PROVIDERS: PCP Family Medicine; Visit Provider Family Medicine
DX: N95.9 Unspecified menopausal and perimenopausal disorder (principal); M81.0 Age-related osteoporosis without current pathological fracture
CPT/HCPCS: 77080

== ENCOUNTER 2025-02-09 22:28 | Outpatient (REF) | payer MEDICARE, SELFPAY ==
[2025-02-09 21:59] LABS: Bilirubin Negative (Negative); Blood Trace-intact (Negative); Clarity Clear (Clear); Glucose Negative (Negative); Ketones Negative (Negative); Leukocyte Esterase Moderate (Negative); Nitrite Positive (Negative); Urobilinogen 0.2 mg/dL (Up to 0.2)
[2025-02-09 22:19] LABS: Epithelial Cells Few HPF (Negative); WBC >50 HPF (0-5)
[2025-02-09 22:20] LABS: Bacteria Packed HPF (Negative); C & S Indicated? Yes; Crystals Negative HPF (Negative); Mucus Negative (Negative); Other Cells Rare Renal (Negative)
== END 2025-02-09 22:29 | disposition home or self-care (01) ==
LOC: LBN 22:28
PROVIDERS: PCP Family Medicine; Visit Provider Nurse Practitioner Family
DX: N39.0 Urinary tract infection, site not specified (principal); B96.20 Unspecified Escherichia coli [E. coli] as the cause of diseases classified elsewhere
CPT/HCPCS: 87077; 81003; 81015; 87086; 87186

== ENCOUNTER 2025-03-15 02:26 | Outpatient (RCR) | payer MEDICARE, SELFPAY ==
[2025-03-15] MEDS: Denosumab 60 MG/ML SYR SC (12:53)
== END 2025-03-25 23:59 | disposition home or self-care (01) ==
LOC: INF 02:26
PROVIDERS: PCP Family Medicine; Visit Provider Family Medicine
DX: M81.0 Age-related osteoporosis without current pathological fracture (principal)
CPT/HCPCS: 96372; J0897

== ENCOUNTER 2025-03-27 21:18 | Emergency (ER) | payer MEDICARE, SELFPAY ==
[2025-03-27 21:24] VITALS: BP 143/72; PULSE 68; RESP 16; O2SAT 94
[2025-03-27] MEDS: Diph,Pertuss(Acell),Tet Vac/Pf 0.5 ML SYR IM (22:42)
[2025-03-27] MEDS: Lidocaine/Epinephri/Tetracaine Topical Gel 3 ML TP (22:46)
--- NOTE | 2025-03-27 22:56 | DI.RAD_ITS ---
Exam(s) XR HAND LT COMPLETE EXAM: XR HAND LT COMPLETE CLINICAL HISTORY: pain at 2nd MCP joint after trauma. TECHNIQUE: 2D digital imaging was performed. COMPARISON: No exams were available for comparison FINDINGS: 3 views There is a possible laceration (versus skin redundancy) in the proximal aspect the 2nd-index finger.. No radiopaque foreign bodies. No fractures. There advanced degenerative changes in the DIP joints of all the fingers, most prominent in the 2nd a nd 3rd fingers. Some degenerative change in the PIP joints also noted but significantly less. This is most evident in the 3rd finger. There also advanced degenerative changes at the 1st carpometacarp al joint as well as the interphalangeal joint of the thumb. Metacarpophalangeal joints appear unrema rkable. There are advanced degenerative changes in the wrist at the radiocarpal joint level. Also heavy calc ification within the triangular fibrocartilage. IMPRESSION: Multilevel degenerative changes as described above. No acute fractures. Laceration in the 2nd-index finger in the region near the base of the proximal phalanx although there is possibly that this just represents skin redundancy at this level. There is no gas in the soft ti ssues at these levels nor radiopaque foreign bodies. DATA REPOSITORY: RADIATION DOSE DELIVERED:
--- NOTE | 2025-03-27 23:14 | ED.GENADUL_ITS ---
Discharge Plan Disposition Patient Disposition: Home Condition: Good Discharge Details Clinical Impression: Abrasion of hand, left Primary Care Provider: Leda Saucedo ED Provider: Timothy Cabrera Home Meds and New Rx's Prescriptions: No Action prednisone 20 mg tablet 20 mg PO DAILY PRN (Reason: gout) Patient Comments: TAKE 1 TABLET BY MOUTH DAILY sodium bicarbonate 650 mg tablet 1,300 mg PO TID Patient Comments: TAKE 2 TABLETS BY MOUTH THREE TIMES DAILY amlodipine 5 mg tablet 5 mg PO BID Qty: 180 4RF atorvastatin 40 mg tablet 40 mg PO DAILY Qty: 90 4RF Rx Instructions: by cardiology [facility] losartan 100 mg tablet 100 mg PO DAILY Qty: 90 3RF metoprolol succinate 50 mg tablet extended release 24 hr 50 mg PO DAILY Qty: 90 4RF hkksjbwiajg-zlg-ohdhuq-D3-Bosw 25 mcg- 937.5 mg tablet PO ketoconazole 2 % cream 1 applic topical BID Qty: 15 0RF alendronate 70 mg tablet 70 mg PO QWEEK Qty: 13 3RF cholecalciferol (vitamin D3) 50 mcg (2,000 unit) capsule 50 mcg PO DAILY Qty: 90 3RF calcium carbonate 500 mg calcium (1,250 mg) tablet 500 mg PO DAILY Qty: 90 3RF loperamide-simethicone [Imodium Multi-Symptom Relief] 1 EACH tablet 2 tab PO PRN PRN calcium carbonate-vitamin D3 1 EACH tablet 1 ea PO DAILY Qty: 90 acetaminophen [Tylenol] 325 MG tablet 650 mg PO TID PRNQty: 30 allopurinol 200 mg tablet 200 mg PO DAILY Qty: 90 0RF Rx Instructions: 02/28/2025 Ordered by Jackie Mills NP at [facility] [place] Nephrology. -hb aspirin 325 MG tablet,delayed release (DR/EC) 325 mg PO DAILY Discharge Instructions Instructions: Taking care of cuts, scrapes, and puncture wounds, Laceration Repair With Glue ED Additional Instructions: At this time there is no clear evidence of fracture on the x-ray. However if the radiology read does show any abnormalities to suggest a fracture I will contact you. In the meantime, please keep the hand bandaged. Please use the splint as needed to help with pain. Please take Tylenol and apply Voltaren gel to help with inflammation. If you notice any redness or streaking please return as this could represent infection. If you notice any worsening of your symptoms, or any new symptoms such as vomiting, diarrhea, fever, chills, shortness of breath, chest pain, numbness, weakness, or fainting , please return immediately to the emergency department for reevaluation. Please follow up with your primary care provider as soon as possible for reassessment and reevaluation. As always, it was a pleasure participating in your medical care today. Referrals: Leda Saucedo MD [Primary Care Provider] - [facility] General Date/Time Provider Initiated Documentation: 03/27/25 21:41 . HPI Narrative: This is an 84-year-old female with a past medical history of hypertension, chronic kidney disease, macular degeneration, high cholesterol, not on any blood thinners aside for daily aspirin, who presents today for superficial abrasion/laceration to her nondominant left hand at the first MCP. Patient states that she was walking her dog when her hand slipped and hit a fence post. She had some mild pain and significant bleeding at the site. She came in for further assessment. She denies any fever or chills. She has mild pain with movement of her finger. She denies any numbness or tingling. She does not know when her last tetanus shot was. She has no other complaints at this time. Related Data Home Medications ?Medication ?Instructions ?Recorded ?Confirmed loperamide 2 mg-simethicone 125 mg 2 tab PO PRN PRN 05/01/14 02/17/25 tablet (Imodium Multi-Symptom Relief) calcium 1,000 mg (as 1 ea PO DAILY #90 tab-caps 11/13/16 02/17/25 carbonate)-vitamin D3 20 mcg (800 unit) tablet aspirin 325 mg tablet,delayed 325 mg PO DAILY 04/08/18 02/17/25 release acetaminophen 325 mg tablet 650 mg PO TID PRN #30 tab-caps 05/20/18 02/17/25 (Tylenol) eetbjyvndqp-mey-nfaufaruvix-vit tab PO 05/01/23 02/17/25 D3-Boswellia 25 mcg-937.5 mg tablet prednisone 20 mg tablet 20 mg PO DAILY PRN gout 08/12/23 02/17/25 amlodipine 5 mg tablet 5 mg PO BID #180 tab-caps 08/19/24 02/17/25 atorvastatin 40 mg tablet 40 mg PO DAILY #90 tab-caps 08/19/24 02/17/25 losartan 100 mg tablet 100 mg PO DAILY #90 tabs 08/19/24 02/17/25 metoprolol succinate 50 mg 50 mg PO DAILY #90 tabs 08/19/24 02/17/25 tablet,extended release 24 hr sodium bicarbonate 650 mg tablet 1,300 mg PO TID 08/19/24 02/17/25 alendronate 70 mg tablet 70 mg PO QWEEK #13 tabs 02/17/25 02/17/25 calcium carbonate 500 mg PO DAILY #90 tabs 02/17/25 02/17/25 cholecalciferol (vitamin D3) 50 50 mcg PO DAILY #90 caps 02/17/25 02/17/25 mcg (2,000 unit) capsule ketoconazole 2 % topical cream 1 applic topical BID #15 grams 02/17/25 02/17/25 allopurinol 200 mg tablet 200 mg PO DAILY #90 tabs 03/06/25 Previous Rx's ?Medication ?Instructions ?Recorded amlodipine 5 mg tablet 5 mg PO BID #180 tab-caps 08/19/24 atorvastatin 40 mg tablet 40 mg PO DAILY #90 tab-caps 08/19/24 losartan 100 mg tablet 100 mg PO DAILY #90 tabs 08/19/24 metoprolol succinate 50 mg 50 mg PO DAILY #90 tabs 08/19/24 tablet,extended release 24 hr alendronate 70 mg tablet 70 mg PO QWEEK #13 tabs 02/17/25 calcium carbonate 500 mg PO DAILY #90 tabs 02/17/25 cholecalciferol (vitamin D3) 50 50 mcg PO DAILY #90 caps 02/17/25 mcg (2,000 unit) capsule ketoconazole 2 % topical cream 1 applic topical BID #15 grams 02/17/25 allopurinol 200 mg tablet 200 mg PO DAILY #90 tabs 03/06/25 Allergies Allergy/AdvReac Type Severity Reaction Status Date / Time atenolol AdvReac FATIGUE Verified 03/27/25 21:27 enalaprilat AdvReac COUGH Verified 03/27/25 21:27 General Stated Complaint: Laceration LOLY: 4 Exam Narrative Exam Narrative: 1.Const: Well-nourished, Well-developed, appearing stated age 2.Eyes: PERRL, no conjunctival injection, and symmetrical lids. 3.ENT: Atraumatic external nose and ears. Moist MM. Neck: Symmetric, trachea midline, No thyromegaly. 4.CVS: +S1/S2, Peripheral pulses 2+ and equal in all extremities. Brisk capillary refill in all extremities. 5.RESP: Unlabored respiratory effort. Clear to auscultation bilaterally. No wheezes rales or rhonchi 6.GI: Soft, Nontender/Nondistended, No hepatosplenomegaly. No guarding or rebound. 7.MSK: Normocephalic, Extremities w/o deformity. No cyanosis or clubbing, Normal movement of all extremities. Mild tenderness over the second MCP joint of the left hand, superficial abrasion/skin tear in that area with no active bleeding. Patient demonstrates good flexion and extension of the index finger, but she does have mild pain when resisting flexion. No deformity otherwise. No rotational deformity. 8.Skin: Warm, Dry. No rashes or lesions. 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 Sensation grossly intact, no focal neurologic deficits. 10.Psych: (AAO) x3. Appropriate mood and affect Course Vital Signs Vital signs: Vital Signs Pulse 68 03/27/25 21:24 Respiratory Rate 16 03/27/25 21:24 Blood Pressure 143/72 H 03/27/25 21:24 Pulse Oximetry 94 03/27/25 21:24 Pulse 68 03/27/25 21:24 Respiratory Rate 16 03/27/25 21:24 Blood Pressure 143/72 H 03/27/25 21:24 Blood Pressure Position Sitting 03/27/25 21:24 Pulse Oximetry 94 03/27/25 21:24 Oxygen Delivery Method Room Air 03/27/25 21:24 Oxygen Flow Rate 0 03/27/25 21:24 Medical Decision Making This is an 84-year-old female with a past medical history of hypertension, chronic kidney disease, macular degeneration, high cholesterol, not on any blood thinners aside for daily aspirin, who presents today for superficial abrasion/laceration to her nondominant left hand at the first MCP. Patient states that she was walking her dog when her hand slipped and hit a fence post. She had some mild pain and significant bleeding at the site. She came in for further assessment. She denies any fever or chills. She has mild pain with movement of her finger. She denies any numbness or tingling. She does not know when her last tetanus shot was. She has no other complaints at this time. Exam demonstrates mild tenderness over the second metacarpal phalangeal joint on the left hand, skin tear is present above that with no active bleeding. No neurologic deficit distally, no rotational deformity. Patient demonstrates good flexion and extension but does have some pain with resistance to flexion. Will get an x-ray to rule out fracture, will clean and glue the skin tear. Will update the patient tetanus status. X-ray negative for acute process or fracture per virtual radiology. Patient had Dermabond applied and tolerated this well. Tetanus has been updated. Patient will be discharged home. Will give a splint for use for comfort as needed. I have extensively reviewed the treatment plan and discharge instructions with the patient and their family. I have addressed all patient concerns at this time. The patient and family was made aware of what symptoms to monitor for that would warrant a return to the emergency department. Discussed the plan with the patient and family, they demonstrate verbal understanding and agreement with our assessment and plan at this time. The documentation in this chart was dictated using [employer] dictation software. Please excuse any dictation errors. FINDINGS: Bones/joints: Demineralization of the visualized bones, limiting sensitivity for nondisplaced fractures. Chondrocalcinosis changes of the TFC. Severe degenerative disease of the interphalangeal joints of the fingers, most pronounced at the DIP of the middle finger. Chronic erosions of the DIP of the middle finger. Severe degenerative disease of the STT and 1st carpometacarpal joints. Cystic changes of the radiocarpal joint with severe joint space narrowing. Soft tissues: There is soft tissue swelling. IMPRESSION: No acute fracture or dislocation. Thank you for allowing us to participate in the care of your patient. 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 Essential hypertension (Chronic) Hyperlipidemia (Chronic) Osteoarthritis (Chronic) Medical History (Updated 03/27/25 @ 23:43 by Timothy Cabrera DO) Cataract (~01/2024) CC (collagenous colitis) [facility] Gastro; : good response to Entocort/ Fup q 1year Cardiac ischemia elif-op for left TKR : ant.ST depression/slight elevation troponin / = MIBI stress test: negative and normal EF () ASA,Metoprolol started/ lipids pending Pulmonary nodule (07/03/14) highly suspicious of malignancy/ lobectomy scheduled [facility] fall 2013 Inflammatory bowel disease (ulcerative colitis) (05/01/14) not specified: followed [facility]/ good control with tx prn Surgical History (Updated 02/17/25 @ 08:42 by Leda Saucedo MD) S/P cataract extraction S/P bronchoscopy with biopsy benign pathology History of bilateral ligation of fallopian tubes (07/27/14) History of carpal tunnel repair Family History Mother No problems noted. Father No problems noted. Sister No problems noted. Brother No problems noted. Son No problems noted. Daughter No problems noted. Daughter No problems noted. Social History (Updated 08/13/23 @ 09:18 by Carmelina Anderson) Smoking/Tobacco Use Status: Never Tobacco: How many years used: 0 Second Hand Exposure: No Smoking risk assessment performed?: Yes Alcohol Intake: former Drug use: Never Substance use type: does not use Counseling given: No Adopted: No Caregiver/Support person: No Household members: spouse Housing: house Number of Children: 3 number of grandchildren: 5 Communication Needs: None and Corrective Lenses Education Level: college Do you need help understanding health information?: Rarely current occupation: retired Pets and animals: Yes Pets and animals: cat(s), dog(s), bird(s) and farm animals Do you think of yourself as: straight/heterosexual What is your relationship status?: How often do you get together with friends or relatives?: once per week Do you belong to any clubs or organized social groups?: yes Panel score (0-1 are the most socially isolated patients): 2 What type of physical activity do you participate in: walking and other Details: care of animals,yard work Duration: 45-60 minutes/day Frequency: daily Special vishnu needs: No Agree to transfusion: Yes Seatbelt use: always Helmet use: No Drive intox or ride w/intox stud driver: No Working smoke detector in home: Yes Firearms in home: Yes Do you feel safe at home: Yes Do you feel safe in your relationship?: Yes Victim of physical abuse: No Victim of emotional abuse: No Victim of sexual abuse: No Would you like helpful sources: No Additional Social history: Enjoys gardening, walking her dog. History History 3 Para 3 Hx # Term Pregnancies Multiple births Hx # Pregnancies Ectopic pregnancies AB induced Hx Number of Living Children AB spontaneous
--- NOTE | 2025-03-28 00:33 | DI.VRAD_ITS ---
PROCEDURE INFORMATION: Exam: XR Left Hand Exam date and time: 03/27/2025 10:56 PM Age: 84 years old Clinical indication: Other: Pain at 2nd mcp joint after trauma; Laceration TECHNIQUE: Imaging protocol: Radiologic exam of the left hand. Views: 3 or more views. COMPARISON: No relevant prior studies available. FINDINGS: Bones/joints: Demineralization of the visualized bones, limiting sensitivity for nondisplaced fractures. Chondrocalcinosis changes of the TFC. Severe degenerative disease of the interphalangeal joints of the fingers, most pronounced at the DIP of the middle finger. Chronic erosions of the DIP of the middle finger. Severe degenerative disease of the STT and 1st carpometacarpal joints. Cystic changes of the radiocarpal joint with severe joint space narrowing. Soft tissues: There is soft tissue swelling. IMPRESSION: No acute fracture or dislocation. Dictated and Authenticated by: Peter Blackman MD. Orderin Rick Aguirre MD
== END 2025-03-27 23:53 | disposition home or self-care (01) ==
PROVIDERS: Emergency Provider Student in an Organized Health Care Education/Training Program; PCP Family Medicine
DX: S61.412A Laceration without foreign body of left hand, initial encounter (principal); I12.9 Hypertensive chronic kidney disease with stage 1 through stage 4 chronic kidney disease, or unspecified chronic kidney disease; N18.9 Chronic kidney disease, unspecified; E78.00 Pure hypercholesterolemia, unspecified; Z23 Encounter for immunization; W23.0XXA Caught, crushed, jammed, or pinched between moving objects, initial encounter; Y93.89 Activity, other specified; Y92.89 Other specified places as the place of occurrence of the external cause
CPT/HCPCS: 12001; 90471; 90715; 99283; 73130

== ENCOUNTER 2025-06-16 17:33 | Outpatient (REF) | payer MEDICARE, SELFPAY ==
[2025-06-16 13:47] LABS: Glucose Negative (Negative)
[2025-06-16 14:07] LABS: RBC >50 HPF (0-2); WBC 20-50 HPF (0-5)
[2025-06-16 14:08] LABS: C & S Indicated? Yes
== END 2025-06-16 17:34 | disposition home or self-care (01) ==
LOC: LBN 17:33
PROVIDERS: PCP Family Medicine; Visit Provider Family Medicine
DX: N39.0 Urinary tract infection, site not specified (principal); B96.29 Other Escherichia coli [E. coli] as the cause of diseases classified elsewhere
CPT/HCPCS: 87077; 81003; 81015; 87086; 87186

== ENCOUNTER 2025-09-08 13:21 | Outpatient (CLI) | payer MEDICARE, SELFPAY ==
--- NOTE | 2025-09-08 13:15 | RT.EKG_ITS ---
APPROVED REPORT Exam: Resting ECG Reason for Exam: PCV immunization reaction Patient Location: O HR:120 bpm ECG Measurements Heart Rate 120 AXIS NV [id number] P [id number] QRSd 85 QRS 40 QT 305 T -60 QTc 431 Conclusion Atrial fibrillation...V-rate 85-153, irreg A-activity Low voltage, extremity leads...all extremity leads <0.5mV Anteroseptal infarct, old...Q >40mS, V1-V2 Nonspecific T abnormalities, inferior leads...T <-0.10mV, II III aVF
== END 2025-09-08 13:22 | disposition home or self-care (01) ==
LOC: DI.CM 13:24
PROVIDERS: PCP Family Medicine; Visit Provider Family Medicine
DX: I48.0 Paroxysmal atrial fibrillation (principal); T50.Z95A Adverse effect of other vaccines and biological substances, initial encounter
CPT/HCPCS: 93010

== ENCOUNTER 2025-09-08 14:39 | Inpatient (IN) | payer MEDICARE, SELFPAY ==
[2025-09-08] VITALS (48 sets, daily range): BP systolic 111–157; BP diastolic 69–93; PULSE 90–126; RESP 18–33; TEMP 36.7; O2SAT 89–96
[2025-09-08] MEDS: Metoprolol 50 MG TAB PO (15:25)
[2025-09-08] MEDS: Normal Saline 500 ML 1000 ML IV ×2 (15:27→17:12)
[2025-09-08 15:42] LABS: Abs Immature Grans 0.10 10^3/uL (0.0-0.06); HCT 34.4 % (36.0-46.0); HGB 11.6 g/dL (11.2-15.7); Immature Grans % 1.0 %; MCH 30.6 pg (27.0-33.0); MCHC 33.7 % (32.0-36.0); MCV 91 fL (80-95); MPV 9.4 fL (8.0-11.0); Platelet Count 265 10^3/uL (130-400); RBC 3.79 10^6/uL (3.93-5.22); RDW 14.6 % (11.7-14.6); RDW-SD 49.0 fL; WBC 9.67 10^3/uL (4.4-10.8)
--- NOTE | 2025-09-08 15:45 | DI.RAD_ITS ---
Exam(s) XR PORTABLE CHEST AP EXAM: XR PORTABLE CHEST AP CLINICAL HISTORY: hypoxia TECHNIQUE: 2D digital imaging was performed. COMPARISON: CR CHEST 2 VIEWS PA,LAT from 04/08/2018 FINDINGS: Exam is limited by poor inspiration and overlying monitoring leads. LUNGS: Increased densities at the right lung base likely reflect atelectasis and. Pneumonia is not excluded. No pleural abnormality seen. HEART: Normal size. AORTA: Tortuous. BONES: Unremarkable for age. Soft tissues: Unremarkable. IMPRESSION: Limited exam due to suboptimal inspiration. Right basilar densities could represent atelectasis versus infiltrate. DATA REPOSITORY: RADIATION DOSE DELIVERED:
[2025-09-08 16:51] LABS: Magnesium 1.9 mg/dL (1.6-2.6)
[2025-09-08 16:54] LABS: ALT 33 U/L (10-49); AST 40 U/L (<34); Albumin 3.7 g/dL (3.4-5.0); Alkaline Phosphatase 70 U/L (46-116); Anion Gap 13.1 mmol/L (3-11); BUN 25 mg/dL (9-23); Bilirubin, Total 0.30 mg/dL (0.2-1.2); CO2 19.9 mmol/L (20.0-31.0); Calcium 8.2 mg/dL (8.3-10.6); Chloride 106 mmol/L (98-107); Glucose 104 mg/dL (74-106); Potassium 4.1 mmol/L (3.5-5.1); Sodium 139 mmol/L (136-145); Total Protein 6.5 g/dL (5.7-8.2)
[2025-09-08 17:12] LABS: Troponin I 44 ng/L (<35)
[2025-09-08] MEDS: Metoprolol CR 25 MG TABCR PO (17:12)
[2025-09-08 17:15] LABS: Glucose Negative (Negative)
[2025-09-08 17:21] LABS: RBC 20-50 HPF (0-2); WBC >50 HPF (0-5)
[2025-09-08 17:46] LABS: Troponin I 56 ng/L (<35)
[2025-09-08] MEDS: cefTRIAXone 1 GM/50 ML BAG IVPB (17:58)
[2025-09-08 18:12] LABS: COVID-19 PCR Negative (Negative); RSV PCR Negative (Negative)
--- NOTE | 2025-09-08 18:56 | W.PM.HP.N ---
Date of service: 09/08/25 Time of Service: 18:56 Assessment and Plan Assessment and plan (1) Atrial fibrillation by electrocardiogram: Status: Acute Assessment and plan: -new diagnosis as seen in PCP office as well as in ED -HR up to 120's, likely due to dehydration and concurrent UTI (see below) -given 50mg PO lopressor and 25mg topprol XL in ED -will give 5mg IV lopressor PRN for sustained HR >120bpm for >5min and adjust AM lopressor based on needed doses overnight -will start lovenox for DVT, send eliquis to pharmacy and discuss with Care Management to make sure patient can afford medicaiton - Echocardiogram ordered but will likely not be done until 09/11/2025. (2) UTI (urinary tract infection): Status: Acute Assessment and plan: -history of frequent UTIs, UA nitrite positive, positive leuks, WBCs, and bacteria -started on CTX, will start PO cefpodoxime in AM (3) Hypertensive kidney disease with stage 3b chronic kidney disease: Status: Acute Assessment and plan: -Cr stable -f/u AM BMP (4) Essential hypertension: Status: Chronic Assessment and plan: -continue home amlodipine and losartan (5) Hyperlipidemia: Status: Chronic Assessment and plan: -continue home statin History of Present Illness History of Present Illness Chief Complaint: new a-fib with RVR at PCP Narrative: 84-year-old female with past medical history of hypertension, gout, hyperlipidemia who presents to the emergency department after being seen at her PCPs office found to be in A-fib RVR. Patient does not have a history of A-fib and when she presented to her primary care provider earlier she initially complained of 1 week of poor oral intake and weakness after having immunization. She denies any headache, lightheadedness, dizziness, chest pain, sensation of palpitations, nausea vomiting or diarrhea. In the emergency department patient was noticed with a heart rate to the 100 130 bpm, with otherwise normal vital signs. CBC and CMP were unremarkable but UA was highly suggestive of urinary tract infection with positive leukocyte esterase, positive nitrites, greater than 50 WBCs presence of bacteria for which she was given dose of IV ceftriaxone. As for her heart rate patient had an EKG that confirmed A-fib with RVR for which she was first given 50 mg p.o. dose of Lopressor followed by a 25 mg dose of Toprol XL patient's heart rate remained elevated. 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 Essential hypertension (Chronic) Hyperlipidemia (Chronic) Osteoarthritis (Chronic) Medical History (Updated 09/08/25 @ 18:57 by Moses Tafoya MD) Cataract (~01/2024) [place]coll[place]ous [place] [facility] [place]; : good response to Entocort/ Fup q 1year Cardiac ischemia elif-op for left TKR : ant.ST depression/slight elevation troponin / = MIBI stress test: negative and normal EF () ASA,Metoprolol started/ lipids pending Pulmonary nodule (07/03/14) highly suspicious of malignancy/ lobectomy scheduled [facility] fall 2013 Inflammatory bowel disease (ulcerative colitis) (05/01/14) not specified: [place] [facility] [place] good control with tx prn Surgical History (Updated 02/17/25 @ 08:42 by Leda Saucedo MD) S/P cataract extraction S/P bronchoscopy with biopsy benign pathology History of bilateral ligation of fallopian tubes (07/27/14) History of carpal tunnel repair Family History Mother No problems noted. Father No problems noted. Sister No problems noted. Brother No problems noted. Son No problems noted. Daughter No problems noted. Daughter No problems noted. Social History (Updated 08/13/23 @ 09:18 by Carmelina Anderson) Smoking/Tobacco Use Status: Never Tobacco: How many years used: 0 Second Hand Exposure: No Smoking risk assessment performed?: Yes Alcohol Intake: former Drug use: Never Substance use type: does not use Counseling given: No Adopted: No Caregiver/Support person: No Household members: spouse Housing: house Number of Children: 3 number of grandchildren: 5 Communication Needs: None and Corrective Lenses Education Level: college Do you need help understanding health information?: Rarely current occupation: retired Pets and animals: Yes Pets and animals: cat(s), dog(s), bird(s) and farm animals Do you think of yourself as: straight/heterosexual What is your relationship status?: How often do you get together with friends or relatives?: once per week Do you belong to any clubs or organized social groups?: yes Panel score (0-1 are the most socially isolated patients): 2 What type of physical activity do you participate in: walking and other Details: care of animals,yard work Duration: 45-60 minutes/day Frequency: daily Special vishnu needs: No Agree to transfusion: Yes Seatbelt use: always Helmet use: No Drive intox or ride w/intox 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 History History 3 Para 3 Hx # Term Pregnancies Multiple births Hx # Pregnancies Ectopic pregnancies AB induced Hx Number of Living Children AB spontaneous Meds Allergies and Home Medications Allergies Allergy/AdvReac Type Severity Reaction Status Date / Time atenolol AdvReac FATIGUE Verified 09/08/25 16:10 enalaprilat AdvReac COUGH Verified 09/08/25 16:10 Home Medications Medication Instructions Recorded Confirmed Type loperamide 2 mg-simethicone 125 mg 2 tab PO PRN PRN 05/01/14 09/08/25 History tablet (Imodium Multi-Symptom Relief) calcium 1,000 mg (as 1 ea PO DAILY #90 tab-caps 11/13/16 09/08/25 History carbonate)-vitamin D3 20 mcg (800 unit) tablet aspirin 325 mg tablet,delayed 325 mg PO DAILY 04/08/18 09/08/25 History release acetaminophen 325 mg tablet 650 mg PO TID PRN #30 tab-caps 05/20/18 09/08/25 History (Tylenol) segjlehprca-nqu-fdrmqdngcdr-vit 1 tab PO DAILY 05/01/23 09/08/25 History D3-Boswellia 25 mcg-937.5 mg tablet prednisone 20 mg tablet 20 mg PO DAILY PRN gout 08/12/23 09/08/25 History sodium bicarbonate 650 mg tablet 1,300 mg PO TID 08/19/24 09/08/25 History calcium carbonate 500 mg PO DAILY #90 tabs 02/17/25 09/08/25 Rx cholecalciferol (vitamin D3) 50 50 mcg PO DAILY #90 caps 02/17/25 09/08/25 Rx mcg (2,000 unit) capsule allopurinol 200 mg tablet 200 mg PO DAILY #90 tabs 03/06/25 09/08/25 Rx amlodipine 5 mg tablet 5 mg PO BID #180 tab-caps 09/01/25 09/08/25 Rx atorvastatin 40 mg tablet 40 mg PO DAILY #90 tab-caps 09/01/25 09/08/25 Rx denosumab 60 mg/mL subcutaneous 60 mg subcut [id number] #1 mL 09/01/25 09/08/25 Rx syringe (Prolia) losartan 100 mg tablet 100 mg PO DAILY #90 tabs 09/01/25 09/08/25 Rx metoprolol succinate 50 mg 50 mg PO DAILY #90 tabs 09/01/25 09/08/25 Rx tablet,extended release 24 hr Exam Narrative Exam Narrative: Well-appearing older female laying in bed in no acute distress, ANO x 4, heart irregularly irregular with rate about 120 bpm, lungs clear auscultation bilaterally, abdomen soft, nontender, nondistended Results Labs 09/08/25 15:30 09/08/25 16:06 Labs: Laboratory Results - last 24 hr 09/08/25 09/08/25 09/08/25 15:30 16:06 17:07 WBC 9.67 RBC 3.79 L Hgb 11.6 Hct 34.4 L MCV 91 MCH 30.6 MCHC 33.7 RDW 14.6 Plt Count 265 MPV 9.4 Immature Gran % 1.0 Neutrophils % 77.5 Lymphocytes % 13.7 Monocytes % 7.1 Eosinophils % 0.5 Basophils % 0.2 Nucleated RBC % 0.0 Absolute Neutrophils 7.49 H Absolute Lymphocytes 1.32 Absolute Monocytes 0.69 Absolute Eosinophils 0.05 Absolute Basophils 0.02 VBG Lactate 1.4 Sodium Cancelled 139 Potassium Cancelled 4.1 Chloride Cancelled 106 Carbon Dioxide Cancelled 19.9 L Anion Gap Cancelled 13.1 H BUN Cancelled 25 H Creatinine Cancelled 1.3 H Est GFR (CKD-EPI 2020) Cancelled 37.93 Glucose Cancelled 104 Calcium Cancelled 8.2 L Magnesium Cancelled 1.9 Total Bilirubin Cancelled 0.30 AST Cancelled 40 H ALT Cancelled 33 Alkaline Phosphatase Cancelled 70 Troponin I Cancelled 44 H NT-Pro-B Natriuret Pep 6981 H Total Protein Cancelled 6.5 Albumin Cancelled 3.7 Urine Color Yellow Urine Clarity Clear Urine pH 5.5 Ur Specific [place] 1.015 Urine Protein 100 H Urine Ketones Negative Urine Blood Small H Urine Nitrite Positive H Urine Bilirubin Negative Urine Urobilinogen 0.2 Ur Leukocyte Esterase Moderate H Urine RBC 20-50 H Urine WBC >50 H Ur Epithelial Cells Moderate Urine Crystals Negative Urine Bacteria Packed Urine Casts Negative Urine Mucus Trace Ur Culture Indicated? No/Sq. Contamination Urine Glucose Negative COVID-19 Source SARS-CoV-2 (PCR) Influenza Type A (PCR) Influenza Type B (PCR) RSV (PCR) 09/08/25 09/08/25 17:12 17:21 WBC RBC Hgb Hct MCV MCH MCHC RDW Plt Count MPV Immature Gran % Neutrophils % Lymphocytes % Monocytes % Eosinophils % Basophils % Nucleated RBC % Absolute Neutrophils Absolute Lymphocytes Absolute Monocytes Absolute Eosinophils Absolute Basophils VBG Lactate Sodium Potassium Chloride Carbon Dioxide Anion Gap BUN Creatinine Est GFR (CKD-EPI 2020) Glucose Calcium Magnesium Total Bilirubin AST ALT Alkaline Phosphatase Troponin I 56 H NT-Pro-B Natriuret Pep Total Protein Albumin Urine Color Urine Clarity Urine pH Ur Specific Dingle Urine Protein Urine Ketones Urine Blood Urine Nitrite Urine Bilirubin Urine Urobilinogen Ur Leukocyte Esterase Urine RBC Urine WBC Ur Epithelial Cells Urine Crystals Urine Bacteria Urine Casts Urine Mucus Ur Culture Indicated? Urine Glucose COVID-19 Source Nasopharynx SARS-CoV-2 (PCR) Negative Influenza Type A (PCR) Negative Influenza Type B (PCR) Negative RSV (PCR) Negative Last Vital Signs Temp 98.1 F 09/08/25 14:51 Pulse 115 H 09/08/25 14:51 Resp 20 09/08/25 14:51 BP 111/70 09/08/25 14:51 Pulse Ox 90 L 09/08/25 14:51 Time Spent Time spent with Patient: >75 minutes Time was spent: preparing to see the patient(eg.review tests), obtaining and/or reviewing separately otained hiistory, ordering medications,tests, procedures, referring, communicating with other health home care specialist, indepentently interpreting results, counseling the patient and care coordination
[2025-09-08] MEDS: Atorvastatin 40 MG TAB PO (22:16)
[2025-09-08] MEDS: amLODIPine 5 MG TAB PO (22:16)
[2025-09-08] MEDS: Normal Saline 1,000 ML 75 ML IV (22:16)
[2025-09-08] MEDS: Acetaminophen 500 MG TAB 1000 MG PO (22:17)
--- NOTE | 2025-09-08 23:06 | W.ED.GENAD ---
Discharge Plan Discharge Details Chief Complaint: RespSymp Admit Date/Time: 09/08/25 18:56 Admit Provider: Moses Tafoya Attending Provider: Moses Tafoya Primary Care Provider: Leda Saucedo ED Provider: Gael Major Discharge Data Discharge Date/Time-TO BE ENTERED AT DEPARTURE: 09/08/25 21:22 HPI General Date/Time Provider Initiated Documentation: 09/08/25 15:05. HPI Narrative: MDM/Narrative: 84-year-old female with no known history of A-fib presents for evaluation of 1 week of general malaise, found to be in new onset A-fib by her primary care. Vital signs notable for heart rate of 120. Physical exam otherwise unremarkable. Patient's presentation is concerning for possible acute ischemic/infectious or metabolic cause for new onset A-fib. Will obtain screening labs, EKG, chest x-ray, urinalysis to further guide care. Patient states that she did not take any of her home medications, such we will start with metoprolol 50 mg p.o. to attempt rate control. ED course: Lab results are notable for UA consistent with infection as such we will treat with ceftriaxone. After initial treatment with metoprolol succinate 50 mg p.o., patient's heart rate is somewhat improved however still varying between 100 to 120 bpm. Will dose with additional 25 mg of metoprolol succinate and reevaluate. Further labs show uptrending troponins, approxi-1 hour after last dose of metoprolol patient's heart rate is unchanged. As such case discussed with Dr. Tafoya the hospitalist who will agree to admit patient for further management. Clinical impression: -New onset A-fib - UTI Disposition: Admit to [facility] HPI: 84-year-old female with past medical history of hypertension, presents for evaluation after being found to be in new onset A-fib by her primary care provider prior to arrival. She notes for the past 5 days she has felt quite weak and ill after receiving a pneumonia vaccine. She denies any associated fever, chills or any other new or concerning symptoms. Does note a cough over the past several days as well. ROS: Negative besides as mentioned above Exam: Gen: A&O NAD HEENT: NCAT, EOMI, not icteric. External ears normal. No rhinorrhea. Moist mucous membranes. Neck: Supple, full range of motion, no observable masses, No meningeal sign. Lungs: No Respiratory distress. CV: Irregularly irregular, no edema. Abdomen: Soft, nondistended, No rebound tenderness. MSK: No joint swelling, no redness. Skin: No rashes, petechiae, lesions. Normal color per patient. Neuro: Normal Gait, Grossly intact. Psych: Appropriate for situation. Labs: Laboratory Tests Range/Units 09/08/25 09/08/25 09/08/25 15:30 16:06 17:07 WBC (4.4-10.8) 10^3/uL 9.67 RBC (3.93-5.22) 10^6/uL 3.79 L Hgb (11.2-15.7) g/dL 11.6 Hct (36.0-46.0) % 34.4 L MCV (80-95) fL 91 MCH (27.0-33.0) pg 30.6 MCHC (32.0-36.0) % 33.7 RDW (11.7-14.6) % 14.6 Plt Count (130-400) 10^3/uL 265 MPV (8.0-11.0) fL 9.4 Immature Gran % % 1.0 Neutrophils % % 77.5 Lymphocytes % % 13.7 Monocytes % % 7.1 Eosinophils % % 0.5 Basophils % % 0.2 Nucleated RBC % (0.0-0.3) % 0.0 Absolute Neutrophils (1.2-6.7) 10^3/uL 7.49 H Absolute Lymphocytes (1.2-3.4) 10^3/uL 1.32 Absolute Monocytes (0.1-0.8) 10^3/uL 0.69 Absolute Eosinophils (0.0-0.7) 10^3/uL 0.05 Absolute Basophils (0.0-0.2) 10^3/uL 0.02 VBG Lactate (<or=2.0) mmol/L 1.4 Sodium Cancelled 139 Potassium Cancelled 4.1 Chloride Cancelled 106 Carbon Dioxide Cancelled 19.9 L Anion Gap Cancelled 13.1 H BUN Cancelled 25 H Creatinine Cancelled 1.3 H Est GFR (CKD-EPI 2020) Cancelled 37.93 Glucose Cancelled 104 Calcium Cancelled 8.2 L Magnesium Cancelled 1.9 Total Bilirubin Cancelled 0.30 AST Cancelled 40 H ALT Cancelled 33 Alkaline Phosphatase Cancelled 70 Troponin I Cancelled 44 H NT-Pro-B Natriuret Pep (<300) pg/mL 6981 H Total Protein Cancelled 6.5 Albumin Cancelled 3.7 Urine Color (Yellow) Yellow Urine Clarity (Clear) Clear Urine pH (5-8) 5.5 Ur Specific [place] (1.005-1.025) 1.015 Urine Protein (Neg-Trace) mg/dL 100 H Urine Ketones (Negative) mg/dL Negative Urine Blood (Negative) Small H Urine Nitrite (Negative) Positive H Urine Bilirubin (Negative) Negative Urine Urobilinogen (Up to 0.2) mg/dL 0.2 Ur Leukocyte Esterase (Negative) Moderate H Urine RBC (0-2) HPF 20-50 H Urine WBC (0-5) HPF >50 H Ur Epithelial Cells (Negative) HPF Moderate Urine Crystals (Negative) HPF Negative Urine Bacteria (Negative) HPF Packed Urine Casts (Negative) LPF Negative Urine Mucus (Negative) Trace Ur Culture Indicated? No/Sq. Contamination Urine Glucose (Negative) mg/dL Negative COVID-19 Source SARS-CoV-2 (PCR) (Negative) Influenza Type A (PCR) (Negative) Influenza Type B (PCR) (Negative) RSV (PCR) (Negative) Range/Units 09/08/25 09/08/25 17:12 17:21 WBC (4.4-10.8) 10^3/uL RBC (3.93-5.22) 10^6/uL Hgb (11.2-15.7) g/dL Hct (36.0-46.0) % MCV (80-95) fL MCH (27.0-33.0) pg MCHC (32.0-36.0) % RDW (11.7-14.6) % Plt Count (130-400) 10^3/uL MPV (8.0-11.0) fL Immature Gran % % Neutrophils % % Lymphocytes % % Monocytes % % Eosinophils % % Basophils % % Nucleated RBC % (0.0-0.3) % Absolute Neutrophils (1.2-6.7) 10^3/uL Absolute Lymphocytes (1.2-3.4) 10^3/uL Absolute Monocytes (0.1-0.8) 10^3/uL Absolute Eosinophils (0.0-0.7) 10^3/uL Absolute Basophils (0.0-0.2) 10^3/uL VBG Lactate (<or=2.0) mmol/L Sodium Potassium Chloride Carbon Dioxide Anion Gap BUN Creatinine Est GFR (CKD-EPI 2020) Glucose Calcium Magnesium Total Bilirubin AST ALT Alkaline Phosphatase Troponin I 56 H NT-Pro-B Natriuret Pep (<300) pg/mL Total Protein Albumin Urine Color (Yellow) Urine Clarity (Clear) Urine pH (5-8) Ur Specific [place] (1.005-1.025) Urine Protein (Neg-Trace) mg/dL Urine Ketones (Negative) mg/dL Urine Blood (Negative) Urine Nitrite (Negative) Urine Bilirubin (Negative) Urine Urobilinogen (Up to 0.2) mg/dL Ur Leukocyte Esterase (Negative) Urine RBC (0-2) HPF Urine WBC (0-5) HPF Ur Epithelial Cells (Negative) HPF Urine Crystals (Negative) HPF Urine Bacteria (Negative) HPF Urine Casts (Negative) LPF Urine Mucus (Negative) Ur Culture Indicated? Urine Glucose (Negative) mg/dL COVID-19 Source Nasopharynx SARS-CoV-2 (PCR) (Negative) Negative Influenza Type A (PCR) (Negative) Negative Influenza Type B (PCR) (Negative) Negative RSV (PCR) (Negative) Negative Radiology: Exam(s) XR PORTABLE CHEST AP EXAM: XR PORTABLE CHEST AP CLINICAL HISTORY: hypoxia TECHNIQUE: 2D digital imaging was performed. COMPARISON: CR CHEST 2 VIEWS PA,LAT from 04/08/2018 FINDINGS: Exam is limited by poor inspiration and overlying monitoring leads. LUNGS: Increased densities at the right lung base likely reflect atelectasis and. Pneumonia is not excluded. No pleural abnormality seen. HEART: Normal size. AORTA: Tortuous. BONES: Unremarkable for age. Soft tissues: Unremarkable. IMPRESSION: Limited exam due to suboptimal inspiration. Right basilar densities could represent atelectasis versus infiltrate. DATA REPOSITORY: RADIATION DOSE DELIVERED: Related Data Home Medications Medication Instructions Recorded Confirmed loperamide 2 mg-simethicone 125 mg 2 tab PO PRN PRN 05/01/14 09/08/25 tablet (Imodium Multi-Symptom Relief) calcium 1,000 mg (as 1 ea PO DAILY #90 tab-caps 11/13/16 09/08/25 carbonate)-vitamin D3 20 mcg (800 unit) tablet aspirin 325 mg tablet,delayed 325 mg PO DAILY 04/08/18 09/08/25 release acetaminophen 325 mg tablet 650 mg PO TID PRN #30 tab-caps 05/20/18 09/08/25 (Tylenol) [id number] 1 tab PO DAILY 05/01/23 09/08/25 D3-Boswellia 25 mcg-937.5 mg tablet prednisone 20 mg tablet 20 mg PO DAILY PRN gout 08/12/23 09/08/25 sodium bicarbonate 650 mg tablet 1,300 mg PO TID 08/19/24 09/08/25 calcium carbonate 500 mg PO DAILY #90 tabs 02/17/25 09/08/25 cholecalciferol (vitamin D3) 50 50 mcg PO DAILY #90 caps 02/17/25 09/08/25 mcg (2,000 unit) capsule allopurinol 200 mg tablet 200 mg PO DAILY #90 tabs 03/06/25 09/08/25 amlodipine 5 mg tablet 5 mg PO BID #180 tab-caps 09/01/25 09/08/25 atorvastatin 40 mg tablet 40 mg PO DAILY #90 tab-caps 09/01/25 09/08/25 denosumab 60 mg/mL subcutaneous 60 mg subcut [id number] #1 mL 09/01/25 09/08/25 syringe (Prolia) losartan 100 mg tablet 100 mg PO DAILY #90 tabs 09/01/25 09/08/25 metoprolol succinate 50 mg 50 mg PO DAILY #90 tabs 09/01/25 09/08/25 tablet,extended release 24 hr Previous Rx's Medication Instructions Recorded calcium carbonate 500 mg PO DAILY #90 tabs 02/17/25 cholecalciferol (vitamin D3) 50 50 mcg PO DAILY #90 caps 02/17/25 mcg (2,000 unit) capsule allopurinol 200 mg tablet 200 mg PO DAILY #90 tabs 03/06/25 amlodipine 5 mg tablet 5 mg PO BID #180 tab-caps 09/01/25 atorvastatin 40 mg tablet 40 mg PO DAILY #90 tab-caps 09/01/25 denosumab 60 mg/mL subcutaneous 60 mg subcut [id number] #1 mL 09/01/25 syringe (Prolia) losartan 100 mg tablet 100 mg PO DAILY #90 tabs 09/01/25 metoprolol succinate 50 mg 50 mg PO DAILY #90 tabs 09/01/25 tablet,extended release 24 hr Allergies Allergy/AdvReac Type Severity Reaction Status Date / Time atenolol AdvReac FATIGUE Verified 09/08/25 16:10 enalaprilat AdvReac COUGH Verified 09/08/25 16:10 General Stated Complaint: RespSymp LOLY: 3 Course Vital Signs Vital signs: Vital Signs Temperature 36.7 C 09/08/25 14:51 Pulse 115 H 09/08/25 14:51 Respiratory Rate 20 09/08/25 14:51 Blood Pressure 111/70 09/08/25 14:51 Pulse Oximetry 90 L 09/08/25 14:51 Temperature 36.7 C 09/08/25 21:42 Pulse 120 H 09/08/25 21:42 Pulse Rhythm Irregular 09/08/25 21:42 Pulse 118 H 09/08/25 21:50 Respiratory Rate 18 09/08/25 21:42 Respiratory Effort Normal 09/08/25 21:42 Respiratory Depth Normal 09/08/25 21:42 Respiratory Pattern Normal 09/08/25 21:42 Blood Pressure 119/72 09/08/25 21:42 Blood Pressure Mean 110 09/08/25 21:01 Blood Pressure Position Sitting 09/08/25 14:51 Pulse Oximetry 92 09/08/25 21:42 Oxygen Delivery Method Room Air 09/08/25 21:42 Oxygen Flow Rate 0 09/08/25 21:42 Pain Level 2 09/08/25 22:17 Lab/Test Results Lab/Test Results: Laboratory Tests Range/Units 09/08/25 09/08/25 09/08/25 15:30 16:06 17:07 WBC (4.4-10.8) 10^3/uL 9.67 RBC (3.93-5.22) 10^6/uL 3.79 L Hgb (11.2-15.7) g/dL 11.6 Hct (36.0-46.0) % 34.4 L MCV (80-95) fL 91 MCH (27.0-33.0) pg 30.6 MCHC (32.0-36.0) % 33.7 RDW (11.7-14.6) % 14.6 Plt Count (130-400) 10^3/uL 265 MPV (8.0-11.0) fL 9.4 Immature Gran % % 1.0 Neutrophils % % 77.5 Lymphocytes % % 13.7 Monocytes % % 7.1 Eosinophils % % 0.5 Basophils % % 0.2 Nucleated RBC % (0.0-0.3) % 0.0 Absolute Neutrophils (1.2-6.7) 10^3/uL 7.49 H Absolute Lymphocytes (1.2-3.4) 10^3/uL 1.32 Absolute Monocytes (0.1-0.8) 10^3/uL 0.69 Absolute Eosinophils (0.0-0.7) 10^3/uL 0.05 Absolute Basophils (0.0-0.2) 10^3/uL 0.02 VBG Lactate (<or=2.0) mmol/L 1.4 Sodium Cancelled 139 Potassium Cancelled 4.1 Chloride Cancelled 106 Carbon Dioxide Cancelled 19.9 L Anion Gap Cancelled 13.1 H BUN Cancelled 25 H Creatinine Cancelled 1.3 H Est GFR (CKD-EPI 2020) Cancelled 37.93 Glucose Cancelled 104 Calcium Cancelled 8.2 L Magnesium Cancelled 1.9 Total Bilirubin Cancelled 0.30 AST Cancelled 40 H ALT Cancelled 33 Alkaline Phosphatase Cancelled 70 Troponin I Cancelled 44 H NT-Pro-B Natriuret Pep (<300) pg/mL 6981 H Total Protein Cancelled 6.5 Albumin Cancelled 3.7 Urine Color (Yellow) Yellow Urine Clarity (Clear) Clear Urine pH (5-8) 5.5 Ur Specific [place] (1.005-1.025) 1.015 Urine Protein (Neg-Trace) mg/dL 100 H Urine Ketones (Negative) mg/dL Negative Urine Blood (Negative) Small H Urine Nitrite (Negative) Positive H Urine Bilirubin (Negative) Negative Urine Urobilinogen (Up to 0.2) mg/dL 0.2 Ur Leukocyte Esterase (Negative) Moderate H Urine RBC (0-2) HPF 20-50 H Urine WBC (0-5) HPF >50 H Ur Epithelial Cells (Negative) HPF Moderate Urine Crystals (Negative) HPF Negative Urine Bacteria (Negative) HPF Packed Urine Casts (Negative) LPF Negative Urine Mucus (Negative) Trace Ur Culture Indicated? No/Sq. Contamination Urine Glucose (Negative) mg/dL Negative COVID-19 Source SARS-CoV-2 (PCR) (Negative) Influenza Type A (PCR) (Negative) Influenza Type B (PCR) (Negative) RSV (PCR) (Negative) Range/Units 09/08/25 09/08/25 17:12 17:21 WBC (4.4-10.8) 10^3/uL RBC (3.93-5.22) 10^6/uL Hgb (11.2-15.7) g/dL Hct (36.0-46.0) % MCV (80-95) fL MCH (27.0-33.0) pg MCHC (32.0-36.0) % RDW (11.7-14.6) % Plt Count (130-400) 10^3/uL MPV (8.0-11.0) fL Immature Gran % % Neutrophils % % Lymphocytes % % Monocytes % % Eosinophils % % Basophils % % Nucleated RBC % (0.0-0.3) % Absolute Neutrophils (1.2-6.7) 10^3/uL Absolute Lymphocytes (1.2-3.4) 10^3/uL Absolute Monocytes (0.1-0.8) 10^3/uL Absolute Eosinophils (0.0-0.7) 10^3/uL Absolute Basophils (0.0-0.2) 10^3/uL VBG Lactate (<or=2.0) mmol/L Sodium Potassium Chloride Carbon Dioxide Anion Gap BUN Creatinine Est GFR (CKD-EPI 2020) Glucose Calcium Magnesium Total Bilirubin AST ALT Alkaline Phosphatase Troponin I 56 H NT-Pro-B Natriuret Pep (<300) pg/mL Total Protein Albumin Urine Color (Yellow) Urine Clarity (Clear) Urine pH (5-8) Ur Specific [place] (1.005-1.025) Urine Protein (Neg-Trace) mg/dL Urine Ketones (Negative) mg/dL Urine Blood (Negative) Urine Nitrite (Negative) Urine Bilirubin (Negative) Urine Urobilinogen (Up to 0.2) mg/dL Ur Leukocyte Esterase (Negative) Urine RBC (0-2) HPF Urine WBC (0-5) HPF Ur Epithelial Cells (Negative) HPF Urine Crystals (Negative) HPF Urine Bacteria (Negative) HPF Urine Casts (Negative) LPF Urine Mucus (Negative) Ur Culture Indicated? 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 Essential hypertension (Chronic) Hyperlipidemia (Chronic) Osteoarthritis (Chronic) Medical History (Updated 09/08/25 @ 18:57 by Moses Tafoya MD) Cataract (~01/2024) CC (collagenous colitis) [facility] [place] Gastro; : good response to Entocort/ Fup q 1year Cardiac ischemia elif-op for left TKR : ant.ST depression/slight elevation troponin / = MIBI stress test: negative and normal EF () ASA,Metoprolol started/ lipids pending Pulmonary nodule (07/03/14) highly suspicious of malignancy/ lobectomy scheduled [facility] fall 2013 Inflammatory bowel disease (ulcerative colitis) (05/01/14) not specified: followed [facility] [place]/ good control with tx prn Surgical History (Updated 02/17/25 @ 08:42 by Leda Saucedo MD) S/P cataract extraction S/P bronchoscopy with biopsy benign pathology History of bilateral ligation of fallopian tubes (07/27/14) History of carpal tunnel repair Family History Mother No problems noted. Father No problems noted. Sister No problems noted. Brother No problems noted. Son No problems noted. Daughter No problems noted. Daughter No problems noted. Social History (Updated 08/13/23 @ 09:18 by Carmelina Anderson) Smoking/Tobacco Use Status: Never Tobacco: How many years used: 0 Second Hand Exposure: No Smoking risk assessment performed?: Yes Alcohol Intake: former Drug use: Never Substance use type: does not use Counseling given: No Adopted: No Caregiver/Support person: No Household members: spouse Housing: house Number of Children: 3 number of grandchildren: 5 Communication Needs: None and Corrective Lenses Education Level: college Do you need help understanding health information?: Rarely current occupation: retired Pets and animals: Yes Pets and animals: cat(s), dog(s), bird(s) and farm animals Do you think of yourself as: straight/heterosexual What is your relationship status?: How often do you get together with friends or relatives?: once per week Do you belong to any clubs or organized social groups?: yes Panel score (0-1 are the most socially isolated patients): 2 What type of physical activity do you participate in: walking and other Details: care of animals,yard work Duration: 45-60 minutes/day Frequency: daily Special vishnu needs: No Agree to transfusion: Yes Seatbelt use: always Helmet use: No Drive intox or ride w/intox steam train driver: No Working smoke detector in home: Yes Firearms in home: Yes Do you feel safe at home: Yes Do you feel safe in your relationship?: Yes Victim of physical abuse: No Victim of emotional abuse: No Victim of sexual abuse: No Would you like helpful sources: No Additional Social history: Enjoys gardening, walking her dog. History History 3 Para 3 Hx # Term Pregnancies Multiple births Hx # Pregnancies Ectopic pregnancies AB induced Hx Number of Living Children AB spontaneous
--- NOTE | 2025-09-09 | DI.RAD_ITS ---
Exam(s) XR CHEST 2V PA LATERAL EXAM: XR CHEST 2V PA LATERAL CLINICAL HISTORY: worse cough, rales right base. TECHNIQUE: 2D digital imaging was performed. COMPARISON: CR XR PORTABLE CHEST AP from 09/08/2025 FINDINGS: 2 views: Heart size is upper normal. The mediastinum is not widened. Left lung is clear. However, there is infiltrate in the right lower lobe, also appearing to involve the superior segment, as seen on the lateral view. There is a small right pleural effusion. No pulmonary edema. IMPRESSION: Significant right lower lobe infiltrate and small right pleural effusion. Preliminary view read report was reviewed. DATA REPOSITORY: RADIATION DOSE DELIVERED:
[2025-09-09 05:01] VITALS: BP 135/69; PULSE 109; RESP 18; TEMP 36.9; O2SAT 96
[2025-09-09 06:57] LABS: HCT 30.4 % (36.0-46.0); HGB 10.0 g/dL (11.2-15.7); MCH 30.0 pg (27.0-33.0); MCHC 32.9 % (32.0-36.0); MCV 91 fL (80-95); MPV 9.5 fL (8.0-11.0); Platelet Count 252 10^3/uL (130-400); RBC 3.33 10^6/uL (3.93-5.22); RDW 14.6 % (11.7-14.6); RDW-SD 49.4 fL; WBC 9.10 10^3/uL (4.4-10.8)
[2025-09-09 07:23] LABS: Magnesium 1.9 mg/dL (1.6-2.6)
[2025-09-09 07:26] LABS: Anion Gap 11.5 mmol/L (3-11); BUN 20 mg/dL (9-23); CO2 20.5 mmol/L (20.0-31.0); Calcium 8.1 mg/dL (8.3-10.6); Chloride 109 mmol/L (98-107); Glucose 114 mg/dL (74-106); Potassium 3.9 mmol/L (3.5-5.1); Sodium 141 mmol/L (136-145)
[2025-09-09] MEDS: Metoprolol CR 50 MG TABCR PO (07:50)
[2025-09-09] MEDS: amLODIPine 5 MG TAB PO (07:50)
[2025-09-09] MEDS: Losartan 50 MG TAB 100 MG PO (07:50)
[2025-09-09] MEDS: Cefpodoxime 200 MG TAB PO ×2 (07:50→20:24)
[2025-09-09] MEDS: Aspirin E.C. 325 MG TABEC PO (07:50)
[2025-09-09] MEDS: Enoxaparin 30 MG/0.3 ML SYR SC (07:50)
[2025-09-09 08:01] VITALS: BP 135/76; PULSE 117; RESP 16; TEMP 36.5; O2SAT 93
--- NOTE | 2025-09-09 09:37 | PDOC.CMIN ---
Date of service: 09/09/25 Time of Service: 09:38 Care Management Initial Assmt Initial Assessment Reason for Hospitalization: Afib, UTI Functional Status/Living Situation Patient Presentation: Louann was lying in bed when CM met with her. Her daughter Fadia was in the room visiting. They were both pleasant and engaged well in conversation. She stated that she does not feel that she is improving since being admitted yesterday. She had a repeat chest xray, which she was waiting for the results from; her RN came in and informed her that based on the results of the xray, the provider is going to order a CT scan, for more definitive results. She reported feeling validated, as she had asked for the repeat chest xray, and now feels hopeful that she will start to feel better. Louann reported that she lives on a farm in [place] with her , Kortney. They have three children who are supportive. She uses a cane to walk around on uneven ground and when she is out of the house. She stated that they have a little dog, cats and poultry, and they have vegetable gardens in the summer. She may benefit from a PT consult, if she continues to feel weak; CM will inform the provider. CM will continue to follow. 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 Medications Medication Management: No Issues/Barriers identified Advance Directives Advance Directives: Do you have an Advance Directive: N 15, 08:44 AD On File at [facility]: N 13, 09:22 Date Asked 09/08/25 09/08/25, 15:30 AD Date Reviewed COLST On File at [facility] COLST Date Scanned Code Status Resuscitation Status Full Code Insurance Coverage/Financial Issues [facility] supplement Care Team Visit Care Team Role Provider Type Anthony Denis MD [facility] STAFF PHYSICIAN Leda Saucedo MD Primary Care Provider [facility] STAFF PHYSICIAN Gael Major MD Emergency Provider [facility] STAFF PHYSICIAN Moses Tafoya MD Admit Provider [facility] STAFF PHYSICIAN Attending Provider Discharge Potential Discharge Needs: PCP F/U Appt Anticipated Barriers to Discharge: None Identified Patient/Family Education Needs: Review discharge instructions, discuss Ask Me Three Transportation: Private vehicle Plan: Anticipate Louann will return home once medically cleared. Her family will drive her home via private vehicle. She will follow up with her PCP and discharge plan of care. CM will continue to follow. Social Determinants of Health Screening Social Determinants of health last assessed in clinic: 09/09/25 Will the Patient Participate in the Screening?: Yes Do you worry about having a steady place to live?: no Problems where you live: no known problems In the past 12 months, have you had to go without electric, gas, oil or water in your home?: no 1. Within the past 12 months, we worried whether our food would run out before we got money to buy more.: Don't know/refused 2. Within the past 12 months, the food we bought just didn't last and we didn't have money to get more.: Don't know/refused Has lack of transportation kept you from medical appointments or from doing things needed for daily living?: no Has anyone in your life made you feel unsafe or unsupported?: no How hard is it for you to pay for the very basics like food, housing, medical care, and heating? Would you say it is:: Not hard at all Do you want help finding or keeping work or a job?: I do not need or want help If for any reason you need help with day-to-day activities such as bathing, preparing meals, shopping, managing finances, etc., do you get the help you need?: I don’t need any help How often do you feel lonely or isolated from those around you?: Never Do you speak a language other than [place] Citizen at home?: No Does the patient want assistance with any of the above?: No PFSH All Active Problems (Updated 09/09/25 @ 13:02 by Anthony Denis) Community acquired pneumonia (Acute) UTI (urinary tract infection) (Acute) Atrial fibrillation by electrocardiogram (Acute) Osteoporosis (Chronic 01/2025) on Prolia injections q 6 mo History of recurrent UTIs (Acute) 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 Essential hypertension (Chronic) Hyperlipidemia (Chronic) Osteoarthritis (Chronic) Medical History (Updated 09/09/25 @ 13:02 by Anthony Denis) Cataract (~01/2024) CC (collagenous [place] [facility]; : good response to Entocort/ Fup q 1year Cardiac ischemia elif-op for left TKR : ant.ST depression/slight elevation troponin / = MIBI stress test: negative and normal EF () ASA,Metoprolol started/ lipids pending Pulmonary nodule (07/03/14) highly suspicious of malignancy/ lobectomy scheduled [facility] fall 2013 Inflammatory bowel disease (ulcerative colitis) (05/01/14) not specified: [place] [facility] good control with tx prn Surgical History (Updated 02/17/25 @ 08:42 by Leda Saucedo MD) S/P cataract extraction S/P bronchoscopy with biopsy benign pathology History of bilateral ligation of fallopian tubes (07/27/14) History of carpal tunnel repair Family History Mother No problems noted. Father No problems noted. Sister No problems noted. Brother No problems noted. Son No problems noted. Daughter No problems noted. Daughter No problems noted. Social History (Updated 08/13/23 @ 09:18 by Carmelina Anderson) Smoking/Tobacco Use Status: Never Tobacco: How many years used: 0 Second Hand Exposure: No Smoking risk assessment performed?: Yes Alcohol Intake: former Drug use: Never Substance use type: does not use Counseling given: No Adopted: No Caregiver/Support person: No Household members: spouse Housing: house Number of Children: 3 number of grandchildren: 5 Communication Needs: None and Corrective Lenses Education Level: college Do you need help understanding health information?: Rarely current occupation: retired Pets and animals: Yes Pets and animals: cat(s), dog(s), bird(s) and farm animals Do you think of yourself as: straight/heterosexual What is your relationship status?: How often do you get together with friends or relatives?: once per week Do you belong to any clubs or organized social groups?: yes Panel score (0-1 are the most socially isolated patients): 2 What type of physical activity do you participate in: walking and other Details: care of animals,yard work Duration: 45-60 minutes/day Frequency: daily Special vishnu needs: No Agree to transfusion: Yes Seatbelt use: always Helmet use: No Drive intox or ride w/intox 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 History History 3 Para 3 Hx # Term Pregnancies Multiple births Hx # Pregnancies Ectopic pregnancies AB induced Hx Number of Living Children AB spontaneous
[2025-09-09 11:22] LABS: Troponin I 33 ng/L (<35)
[2025-09-09] MEDS: Normal Saline 1,000 ML 75 ML IV (11:40)
[2025-09-09 11:45] VITALS: BP 129/72; PULSE 117; RESP 16; TEMP 37.6; O2SAT 92
--- NOTE | 2025-09-09 12:50 | W.PM.PROGNOT ---
Date of Service Date of service: 09/09/25 Time of Service: 12:50 Assessment and Plan Assessment and plan (1) Atrial fibrillation by electrocardiogram: Status: Acute Assessment and plan: -new diagnosis as seen in PCP office as well as in ED -HR up to 120's, likely due to dehydration and concurrent UTI (see below) -given 50mg PO lopressor and 25mg topprol XL in ED, consider another PM dose. -hasn't needed prm 5mg IV lopressor PRN -[id number] is 4, after discussion I will starte apixaban. - apixaban sent to pharmacy and discussed with Care Management - Echocardiogram ordered but will likely not be done until 09/11/2025 vs outpatient. (2) UTI (urinary tract infection): Status: Acute Assessment and plan: -history of frequent UTIs, UA nitrite positive, positive leuks, WBCs, and bacteria -In ED given CTX, will now on po cefpodoxime. (3) Community acquired pneumonia: Status: Acute Assessment and plan: Exam and symptoms are c/w pneumonia. Admission CXR was AP only, suggested RLL infiltrate which is c/w exam. Will add doxycycline to 3rd gen cephalosporin to cover this. Get PA/Lat CXR to clarify diagnosis. This is more likely a trigger for Afib. (4) Hypertensive kidney disease with stage 3b chronic kidney disease: Status: Acute Assessment and plan: -Cr stable at/slightly below baseline (5) Essential hypertension: Status: Chronic Assessment and plan: -continue home amlodipine and losartan (6) Hyperlipidemia: Status: Chronic Assessment and plan: -continue home statin Subjective Subjective Patient reports: tolerating a regular diet and voiding w/o difficulty; denies vomiting or fever Interval history since last seen: still feels exhausted. Cough is getting worse, sometimes sputum. No fever, but feels clammy. No chest pain or palpitations. A little SOB with activity. Eating but not a lot Exam Narrative Exam Narrative: Older female sitting up in bed in no acute distress, ANO x 4, heart irregularly irregular with rate about 100 bpm, lungs rales right base, otherwise clear, abdomen soft, nontender, nondistended. Extremities without cyanosis, clubbing, or edema Objective Last Vital Signs Temp 37.6 C H 09/09/25 11:45 Pulse 117 H 09/09/25 11:45 Resp 16 09/09/25 11:45 BP 129/72 09/09/25 11:45 Pulse Ox 92 09/09/25 11:45 Laboratory Results - last 24 hr 09/08/25 09/08/25 09/08/25 15:30 16:06 17:07 WBC 9.67 RBC 3.79 L Hgb 11.6 Hct 34.4 L MCV 91 MCH 30.6 MCHC 33.7 RDW 14.6 Plt Count 265 MPV 9.4 Immature Gran % 1.0 Neutrophils % 77.5 Lymphocytes % 13.7 Monocytes % 7.1 Eosinophils % 0.5 Basophils % 0.2 Nucleated RBC % 0.0 Absolute Neutrophils 7.49 H Absolute Lymphocytes 1.32 Absolute Monocytes 0.69 Absolute Eosinophils 0.05 Absolute Basophils 0.02 VBG Lactate 1.4 Sodium Cancelled 139 Potassium Cancelled 4.1 Chloride Cancelled 106 Carbon Dioxide Cancelled 19.9 L Anion Gap Cancelled 13.1 H BUN Cancelled 25 H Creatinine Cancelled 1.3 H Est GFR (CKD-EPI 2020) Cancelled 37.93 Glucose Cancelled 104 Calcium Cancelled 8.2 L Magnesium Cancelled 1.9 Total Bilirubin Cancelled 0.30 AST Cancelled 40 H ALT Cancelled 33 Alkaline Phosphatase Cancelled 70 Troponin I Cancelled 44 H NT-Pro-B Natriuret Pep 6981 H Total Protein Cancelled 6.5 Albumin Cancelled 3.7 Urine Color Yellow Urine Clarity Clear Urine pH 5.5 Ur Specific [place] 1.015 Urine Protein 100 H Urine Ketones Negative Urine Blood Small H Urine Nitrite Positive H Urine Bilirubin Negative Urine Urobilinogen 0.2 Ur Leukocyte Esterase Moderate H Urine RBC 20-50 H Urine WBC >50 H Ur Epithelial Cells Moderate Urine Crystals Negative Urine Bacteria Packed Urine Casts Negative Urine Mucus Trace Ur Culture Indicated? No/Sq. Contamination Urine Glucose Negative COVID-19 Source SARS-CoV-2 (PCR) Influenza Type A (PCR) Influenza Type B (PCR) RSV (PCR) 09/08/25 09/08/25 09/09/25 17:12 17:21 06:02 WBC 9.10 RBC 3.33 L Hgb 10.0 L Hct 30.4 L MCV 91 MCH 30.0 MCHC 32.9 RDW 14.6 Plt Count 252 MPV 9.5 Immature Gran % Neutrophils % Lymphocytes % Monocytes % Eosinophils % Basophils % Nucleated RBC % Absolute Neutrophils Absolute Lymphocytes Absolute Monocytes Absolute Eosinophils Absolute Basophils VBG Lactate Sodium 141 Potassium 3.9 Chloride 109 H Carbon Dioxide 20.5 Anion Gap 11.5 H BUN 20 Creatinine 1.1 H Est GFR (CKD-EPI 2020) 48.24 Glucose 114 H Calcium 8.1 L Magnesium 1.9 Total Bilirubin AST ALT Alkaline Phosphatase Troponin I 56 H 33 NT-Pro-B Natriuret Pep Total Protein Albumin Urine Color Urine Clarity Urine pH Ur Specific [place] Urine Protein Urine Ketones Urine Blood Urine Nitrite Urine Bilirubin Urine Urobilinogen Ur Leukocyte Esterase Urine RBC Urine WBC Ur Epithelial Cells Urine Crystals Urine Bacteria Urine Casts Urine Mucus Ur Culture Indicated? Urine Glucose COVID-19 Source Nasopharynx SARS-CoV-2 (PCR) Negative Influenza Type A (PCR) Negative Influenza Type B (PCR) Negative RSV (PCR) Negative Time Spent with Patient Time Spent with Patient: 35-49 minutes Time was spent: preparing to see the patient(eg.review tests), obtaining and/or reviewing separately otained hiistory, ordering medications,tests, procedures, referring, communicating with other health child day care provider, indepentently interpreting results, counseling the patient and care coordination
[2025-09-09] MEDS: Acetaminophen 500 MG TAB 1000 MG PO (13:28)
[2025-09-09] MEDS: Doxycycline Hyclate 100 MG CAP PO ×2 (13:40→20:24)
--- NOTE | 2025-09-09 13:58 | DI.VRAD_ITS ---
PROCEDURE INFORMATION: Exam: XR Chest Exam date and time: 09/09/2025 1:04 PM Age: 84 years old Clinical indication: Cough TECHNIQUE: Imaging protocol: Radiologic exam of the chest. Views: 2 views. COMPARISON: CR XR PORTABLE CHEST AP 09/08/2025 3:42 PM FINDINGS: Lungs: There is mildly increasing patchy right basilar opacity suggesting pneumonia with possible component of collapse. The lungs are otherwise clear. Pleural spaces: A very small right pleural effusion has developed. The left costophrenic angle is sharp. No pneumothorax is identified. Heart/Mediastinum: The cardiomediastinal silhouette is fairly stable in appearance. Bones/joints: Degenerative changes again involve the spine and shoulders. IMPRESSION: Mildly increasing patchy right basilar opacity as compared with 09/08/2025, suggesting pneumonia with possible component of collapse, along with a very small new right pleural effusion. Dictated and Authenticated by: Colby Desai MD. Orderin Adeel Cruz MD
[2025-09-09 16:03] VITALS: BP 116/72; PULSE 109; RESP 16; TEMP 36.7; O2SAT 96
[2025-09-09 19:32] VITALS: BP 113/75; PULSE 94; RESP 16; TEMP 36.4; O2SAT 100
[2025-09-09] MEDS: Atorvastatin 40 MG TAB PO (20:24)
[2025-09-09] MEDS: guaiFENesin 600 MG TABCR PO (20:24)
[2025-09-09] MEDS: Apixaban 5 MG TAB PO (20:24)
[2025-09-09 23:11] VITALS: BP 112/64; PULSE 92; RESP 16; TEMP 36.9; O2SAT 93
[2025-09-10] VITALS (8 sets, daily range): BP systolic 90–130; BP diastolic 48–87; PULSE 95–120; RESP 17–20; TEMP 36–37.2; O2SAT 91–94
--- NOTE | 2025-09-10 | DI.CT_ITS ---
Exam(s) CT CHEST W EXAM: CT CHEST W CLINICAL HISTORY: worsening pneumonia/hypoxia, effusion. TECHNIQUE: Multi planar reconstructions were performed. CONTRAST MATERIAL: Omnipaque 350; 70 cc COMPARISON: CR,XR XR CHEST 2V PA LATERAL from 09/09/2025 FINDINGS: CHEST: LUNGS: There is prominent infiltrate throughout the right lower lobe involving basal segments as well as the superior segment and also mildly involving the posterior aspect of the right upper lobe. There is a small amount of pleural fluid which is predominately in the superior aspect of the right major fissure. The opposite-left lung is clear. No pleural fluid on the left side. No central pulmonary emboli identified. MEDIASTINUM: Slightly enlarged precarinal and subcarinal lymph nodes noted. CARDIAC: Heart size is normal. There is no pericardial effusion.No significant dilatation of the thoracic aorta but there is significant atherosclerotic disease evident in the distal arch and proximal descending thoracic aorta. No evidence of dissection. VISUALIZED UPPER ABDOMEN:There are no significant adrenal masses. Liver is hypodense implying steatosis. Spleen size normal. Thin bilateral renal cortices and small benign cyst in the right kidney which does not require further workup. OSSEOUS: No acute fractures. Are healed fractures in the posterior aspect of the right 9th and 10th ribs.. IMPRESSION: 1. There is prominent area of infiltrate involving the right lower lobe basal as well as superior segments of the right lower lobe and also mild infiltrate in the posterior aspect of the right upper lobe. Small amount of right pleural fluid. Mild adenopathy. Findings are consistent with pneumonia. Preliminary virtual Radiology report was reviewed. RADIATION DOSE DELIVERED: 171.13mGy.cm Total DLP DATA REPOSITORY: All CT scans at this facility are submitted to the National Radiology Data Registry (NRDR) Dose Index Registry (DIR) with the [employer] (ACR). RADIATION OPTIMIZATION: All CT scans at this facility use at least one of these dose optimization techniques: automated exposure control; mA and/or kV adjustment per patient size (includes targeted exams where dose is matched to clinical indication); or iterative reconstruction.
[2025-09-10] MEDS: LORazepam 1 MG TAB PO ×2 (01:43→19:53)
[2025-09-10] MEDS: Omnipaque 350 MG/ML 100 ML BTL IJ (07:43)
[2025-09-10] MEDS: Normal Saline - Diluent 50 ML VIAL IJ (07:44)
[2025-09-10] MEDS: Normal Saline Flush 10 ML SYR IVP ×2 (07:44→19:53)
[2025-09-10 08:06] LABS: Abs Immature Grans 0.09 10^3/uL (0.0-0.06); HCT 31.4 % (36.0-46.0); HGB 10.2 g/dL (11.2-15.7); Immature Grans % 0.9 %; MCH 30.2 pg (27.0-33.0); MCHC 32.5 % (32.0-36.0); MCV 93 fL (80-95); MPV 8.8 fL (8.0-11.0); Platelet Count 279 10^3/uL (130-400); RBC 3.38 10^6/uL (3.93-5.22); RDW 14.9 % (11.7-14.6); RDW-SD 50.6 fL; WBC 9.73 10^3/uL (4.4-10.8)
[2025-09-10] MEDS: Doxycycline Hyclate 100 MG CAP PO ×2 (08:17→19:52)
[2025-09-10] MEDS: Cefpodoxime 200 MG TAB PO ×2 (08:17→19:52)
[2025-09-10] MEDS: Losartan 50 MG TAB 100 MG PO (08:17)
[2025-09-10] MEDS: amLODIPine 5 MG TAB PO (08:17)
[2025-09-10] MEDS: Apixaban 5 MG TAB PO ×2 (08:17→09:06)
[2025-09-10] MEDS: Metoprolol CR 50 MG TABCR PO (08:18)
[2025-09-10] MEDS: guaiFENesin 600 MG TABCR PO ×2 (08:18→19:53)
[2025-09-10 08:24] LABS: Anion Gap 9.6 mmol/L (3-11); BUN 16 mg/dL (9-23); CO2 22.4 mmol/L (20.0-31.0); Calcium 8.4 mg/dL (8.3-10.6); Chloride 105 mmol/L (98-107); Glucose 100 mg/dL (74-106); Potassium 4.3 mmol/L (3.5-5.1); Sodium 137 mmol/L (136-145)
--- NOTE | 2025-09-10 08:39 | DI.VRAD_ITS ---
Addendum created by Carolina Salazar MD on 09/10/2025 8:42:38 AM EST: THIS REPORT CONTAINS FINDINGS THAT MAY BE CRITICAL TO PATIENT CARE. The findings were verbally communicated via telephone conference with Anthony Denis at 8:42 AM EST on 09/10/2025. The findings were acknowledged and understood. Initial report created on 09/10/2025 8:39:17 AM EST: PROCEDURE INFORMATION: Exam: CT Chest With Contrast; Diagnostic Exam date and time: 09/10/2025 7:32 AM Age: 84 years old Clinical indication: Other: Worsening pneumonia/hypoxia, effusion TECHNIQUE: Imaging protocol: Diagnostic computed tomography of the chest with contrast. 3D rendering (Not supervised by radiologist): MIP and/or 3D reconstructed images were created by the technologist. Contrast material: OMNIPAQUE 350; Contrast volume: 70 ml; Contrast route: INTRAVENOUS (IV); COMPARISON: CR XR CHEST 2V PA LATERAL 09/09/2025 1:04 PM FINDINGS: Lungs: Consolidation in the right upper lobe and superior segment of the right lower lobe consistent with pneumonia. . Pleural spaces: Mild Pleural effusion in the posterior aspect of the right upper lobe. Series 2, image 8.. Heart: Filling defects in the right atrium 16 x 20 mm series 2, image 36 and 14 x 13 mm series 2 image 37. This could 11.4 x 9.8 mm series 2, image 75. These could represent small thrombi in the anterior aspect of the right atrium. Lymph nodes: Pathologic node anterior to the malika 18 x 15 mm. Pathologic node in AP window 18 x 13 mm. Subcarinal adenopathy 25 x 13 mm.Impression Vasculature: No evidence of pulmonary embolus to the segmental level. No aneurysm of the aorta. No dissection of the aorta. Bones/joints: Unremarkable. No acute fracture. Soft tissues: Unremarkable. IMPRESSION: 1. No evidence of pulmonary embolus to the segmental level. 2. No aneurysm of the aorta. 3. No dissection of the aorta. 4. Consolidation in the right upper lobe and superior segment of the right lower lobe consistent with pneumonia. . 5. Mild Pleural effusion in the posterior aspect of the right upper lobe. Series 2, image 8.. 6. Filling defects in the right atrium 16 x 20 mm series 2, image 36 and 14 x 13 mm series 2 image 37. This could 11.4 x 9.8 mm series 2, image 75. These could represent small thrombi in the anterior aspect of the right atrium. Dictated and Authenticated by: Carolina Salazar MD. Orderin Adeel Cruz MD
[2025-09-10 09:49] LABS: MRSA PCR Negative (Negative)
--- NOTE | 2025-09-10 11:10 | W.PM.PROGNOT ---
Date of Service Date of service: 09/10/25 Time of Service: 11:10 Assessment and Plan Assessment and plan (1) Atrial fibrillation by electrocardiogram: Status: Acute Assessment and plan: -new diagnosis as seen in PCP office as well as in ED -HR up to 120's, likely due to dehydration and concurrent UTI (see below) -given 50mg PO lopressor and 25mg topprol XL in ED, consider another PM dose. -hasn't needed prm 5mg IV lopressor PRN -[id number] is 4, after discussion I will starte apixaban. - apixaban sent to pharmacy and discussed with Care Management - Echocardiogram ordered but will likely not be done until 09/11/2025 vs outpatient. (2) UTI (urinary tract infection): Status: Acute Assessment and plan: -history of frequent UTIs, UA nitrite positive, positive leuks, WBCs, and bacteria -In ED given CTX, will now on po cefpodoxime. -Urine now reading as contaminated so culture not done. Previous e. coli were sensitive, symptoms have improved, so I would consider her treated after 3 days. (3) Community acquired pneumonia: Status: Acute Assessment and plan: Exam and symptoms are c/w pneumonia. Admission CXR was AP only, suggested RLL infiltrate which is c/w exam. Added doxycycline to 3rd gen cephalosporin to cover this 09/09. CT confirms, no lung mass. This is more likely a trigger for Afib. Add cough suppressant and acapella, IS to help clear mucous and open lung (4) Hypertensive kidney disease with stage 3b chronic kidney disease: Status: Acute Assessment and plan: -Cr stable at/slightly below baseline (5) Essential hypertension: Status: Chronic Assessment and plan: -continue home amlodipine and losartan (6) Right atrial mass: Status: Acute Assessment and plan: New on CT, concern for clot given atrial fibrillation. Treat for now with full dose apixaban. echo pending 09/11 to confirm. 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 We discussed risks and precautions, but decided to use at hs tonight. She is on fall precautions. Subjective Subjective Patient reports: denies fever Interval history since last seen: Events: CXR suggested pneumonia, started on doxycycline On O2 overnight Received lorazepam for anxiety overnight She didn't sleep well, was quite worked up last night with worry. She doesn't get this at home. Exam Narrative Exam Narrative: Older female sitting up in bed in no acute distress, ANO x 4, heart irregularly irregular with rate about 100 bpm, lungs rales right mid chest to base, otherwise clear, abdomen soft, nontender, nondistended. Extremities without cyanosis, clubbing, or edema Objective Last Vital Signs Temp 37.2 C 09/10/25 10:57 Pulse 114 H 09/10/25 10:57 Resp 20 09/10/25 10:57 BP 130/77 09/10/25 10:57 Pulse Ox 93 09/10/25 10:57 Laboratory Results - last 24 hr 09/09/25 09/10/25 09/10/25 06:02 07:55 08:21 WBC 9.73 RBC 3.38 L Hgb 10.2 L Hct 31.4 L MCV 93 MCH 30.2 MCHC 32.5 RDW 14.9 H Plt Count 279 MPV 8.8 Immature Gran % 0.9 Neutrophils % 76.5 Lymphocytes % 14.0 Monocytes % 7.0 Eosinophils % 1.2 Basophils % 0.4 Nucleated RBC % 0.0 Absolute Neutrophils 7.44 H Absolute Lymphocytes 1.36 Absolute Monocytes 0.68 Absolute Eosinophils 0.12 Absolute Basophils 0.04 Sodium 137 Potassium 4.3 Chloride 105 Carbon Dioxide 22.4 Anion Gap 9.6 BUN 16 Creatinine 1.0 Est GFR (CKD-EPI 2020) 52.72 Glucose 100 Calcium 8.4 Troponin I 33 MRSA (TEM-PCR) Negative Objective Narrative Objective Narrative: CT Chest 1. No evidence of pulmonary embolus to the segmental level. 2. No aneurysm of the aorta. 3. No dissection of the aorta. 4. Consolidation in the right upper lobe and superior segment of the right lower lobe consistent with pneumonia. . 5. Mild Pleural effusion in the posterior aspect of the right upper lobe. Series 2, image 8.. 6. Filling defects in the right atrium 16 x 20 mm series 2, image 36 and 14 x 13 mm series 2 image 37. This could 11.4 x 9.8 mm series 2, image 75. These could represent small thrombi in the anterior aspect of the right atrium. Time Spent with Patient Time Spent with Patient: 35-49 minutes Time was spent: preparing to see the patient(eg.review tests), obtaining and/or reviewing separately otained hiistory, ordering medications,tests, procedures, referring, communicating with other health rn palliative care, indepentently interpreting results, counseling the patient and care coordination
[2025-09-10] MEDS: Benzonatate 100 MG CAP PO ×2 (13:46→19:59)
[2025-09-10] MEDS: Sodium Bicarbonate 650 MG TAB 1300 MG PO ×2 (13:46→19:52)
[2025-09-10] MEDS: Atorvastatin 40 MG TAB PO (19:52)
[2025-09-10] MEDS: Apixaban 5 MG TAB 10 MG PO (19:53)
[2025-09-11 03:20] VITALS: BP 127/72; PULSE 56; RESP 18; TEMP 36.7; O2SAT 93
[2025-09-11 07:13] LABS: Anion Gap 10.7 mmol/L (3-11); BUN 16 mg/dL (9-23); CO2 22.3 mmol/L (20.0-31.0); Calcium 8.4 mg/dL (8.3-10.6); Chloride 107 mmol/L (98-107); Glucose 92 mg/dL (74-106); Potassium 4.1 mmol/L (3.5-5.1); Sodium 140 mmol/L (136-145)
[2025-09-11] MEDS: Cefpodoxime 200 MG TAB PO (09:40)
[2025-09-11] MEDS: Glucosamine/Chondroitin CAP 1 CAP PO (09:40)
[2025-09-11] MEDS: Benzonatate 100 MG CAP PO ×2 (09:40→14:00)
[2025-09-11] MEDS: Calcium Carbonate *TUMS* 500 MG CHEW CH (09:40)
[2025-09-11] MEDS: Losartan 50 MG TAB 100 MG PO (09:40)
[2025-09-11] MEDS: Calcium 600mg/Vit D 200U TAB 2 TAB PO (09:41)
[2025-09-11] MEDS: Doxycycline Hyclate 100 MG CAP PO (09:41)
[2025-09-11] MEDS: Sodium Bicarbonate 650 MG TAB 1300 MG PO ×2 (09:41→13:59)
[2025-09-11] MEDS: Apixaban 5 MG TAB 10 MG PO (09:41)
[2025-09-11] MEDS: Metoprolol CR 50 MG TABCR PO (09:41)
[2025-09-11] MEDS: guaiFENesin 600 MG TABCR PO (09:41)
[2025-09-11] MEDS: amLODIPine 5 MG TAB PO (09:41)
[2025-09-11] MEDS: Allopurinol 100 MG TAB 200 MG PO (09:41)
[2025-09-11] MEDS: Metoprolol CR 25 MG TABCR PO (09:51)
[2025-09-11 09:53] VITALS: BP 122/77; PULSE 104
[2025-09-11 11:18] VITALS: BP 112/67; PULSE 98; RESP 17; TEMP 37.4; O2SAT 93
--- NOTE | 2025-09-11 11:52 | W.NUTRFU ---
Date of service: 09/11/25 Time of Service: 11:53 Nutrition Note NOTE: Louann being treated for Afib, UTI, comm acquired PNA and right atrial mass (concern for clot per provider notes). Chronic gout of hand and HTN HLD also chronic conditions. Weight generally stable over the last 2 years with trend of loss of about 5 kg over the last 3 years.. FAir to good appetite noted by nursing over admission and tolerating a heart healthy diet order currently (will liberalize to regular to promote intake). Nutrition related labs this admission wnl. Pt initially assessed as lower acute nutrition risk. No aggressive nutrition intervention planned at this time. Will monitor nutrition related labs, weight, po intake. Time Spent in Nutritional Counseling and Treatment: 0
--- NOTE | 2025-09-11 13:29 | PT.INIE ---
PT Notes Visit Reasons: A-fib, UTI Physical Therapy Inpatient Initial Evaluation Date: 09/11/2025 Referring Doctor: Dr Denis PT Orders: PT CONSULT: Safety Consult for D/C Precautions: Standard Patient Profile/Admitting Diagnosis:Pt is an 84 yo female presented to the ED. Pt dx with Afib with RVR per EKG, (+) UTI CxR on 09/11 showed RLL infiltrate and small R ight pleural effusion. Pt treated with Toprol XL and Abx. 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 (Acute) Hypertensive kidney disease with stage 3b chronic kidney disease (Acute) Lumbosacral spondylosis without myelopathy (Chronic) s/p injections with improvementAnterolisthesis of lumbosacral spine (Chronic) s/p injections with improvement.Essential hypertension (Chronic) Hyperlipidemia (Chronic) Osteoarthritis (Chronic) Medical History (Updated 09/08/25 @ 18:57 by Moses Tafoya MD) Cataract (~01/2024) CC (collagenous colitis) [facility] [place] Gastro; : good response to Entocort/ Fup q 1year Cardiac ischemia elif-op for left TKR : ant.ST depression/slight elevation troponin / = MIBI stress test: negative and normal EF () ASA,Metoprolol started/ lipids pending Pulmonary nodule (07/03/14) highly suspicious of malignancy/ lobectomy scheduled [facility] fall 2013 Inflammatory bowel disease (ulcerative colitis) (05/01/14) not specified: followed [facility] [place]/ good control with tx prn Surgical History (Updated 02/17/25 @ 08:42 by Leda Saucedo MD) S/P cataract extraction S/P bronchoscopy with biopsy benign pathologyHistory of bilateral ligation of fallopian tubes (07/27/14) History of carpal tunnel repair Social History/Home Situation: Pt resides with in single family home with 5 steps to enter with left rail. Pt independent without AD for all mobility, Independent ADL, Pt independent managing guinea hens and chickens as well as her small dog Equipment Owned/DME: [facility] Subjective: Pt reports she only uses her cane Objective: [] General Observation: Pt presented sidelying in bed with her visiting Mental Status: Alert and oriented x 4, cooperative, able to follow instructions, agreeable to participate in evaluation Pain: [] Denied Vitals: SaO2 on room air 95% preambulation; 93% post ambulation ROM: [] BUE: WFL BLE: WFL Strength: [] BUE: Grossly 4/5 BLE: Grossly 4/5 Sensation: Intact Bed Mobility/Transfers: [] Supine to sit independent Sit to stand independent Stand to sit independent Bed to chair independent Gait: Independent ambulation without assistive device 200 feet no loss of balance reciprocal pattern on level surfaces including turns Stairs: 3 x 4 inch step 2 x 6 inch step with 1 rail SBA reciprocal pattern Balance: [] Static Sitting: Normal Dynamic Sitting: Normal Static Standing: Normal Dynamic Standing: Good without upper extremity support Special Tests: [] Mobility Limitations Standardized Measure [] [facility] 6 clicks Basic Mobility Inpatient Short Form: [] Raw Score: 24 CMS Score: 0% Informed Consent/Education: Patient instructed in purpose of PT consult. Assessment: Yesica is an 84-year-old female presenting with diagnosis of pneumonia. Patient demonstrates generalized weakness related to illness without focal deficits and functional ability. Patient demonstrates independence with ambulation and transfers and bed mobility standby assist on stairs. Her was present during session. Patient recommended to continue use of single-point cane on uneven's outdoor surfaces as she did prior to hospitalization. Anticipate patient to be discharged to home no further skilled PT services indicated at this time Patient is assessed as a moderate complexity based on the following: History: 84-year-old female with impairment level findings, functional limitations, and past medical history as indicated above Examination: Demonstrable impairment in strength, balance, and mobility level with underlying impairments and functional limitations as documented above Presentation: Stable Decision Making: moderate Goals: N/A. PT evaluation and 1-2 treatment sessions only for functional mobility training using recommended AD and for HEP instruction. Plan of Care/Treatment Plan: N/A. PT evaluation and 1-2 treatment session only for functional mobility training using recommended AD and for HEP instruction. DISCHARGE RECOMMENDATIONS: Home with no services TREATMENT CODE/TIME: [id number] Thank you for the opportunity to participate in the care of this patient. Angela Torres, PT [facility]
--- NOTE | 2025-09-11 14:13 | W.PM.DS.N ---
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 Her troponin was borderline elevated with the high rates but improved, and she did not have chest pain or ischemic EKG changes. She did have a cough as well as some mild dysuria. She was treated with IV and additional oral metoprolol. Her [id number] was 4 and after discussion she was started on apixaban. Initially she was diagnosed with a UTI based on mild dysuria and WBC in the urine, but the urine was read as contaminated and not cultured. Her cough became more prominent and she had rales on exam, PA/Lat CXR and then CT confirmed lobar pneumonia. Doxycycline was added to her her cefpodoxime to treat community acquired pneumonia. She was also given cough suppressants/expectorant and chest PT. Her CT suggested a mass in her right atrium concerning for a clot. Given this, her apixaban was increased to 10mg BID dose. However the echocardiogram showed no atrial clot and preserved LVEF, similar to previous. She was discharged on the 5mg BID dosing. Of note her weight and creatinine are both relatively close to the cut off for dose reduction and should be followed. Her AST was mildly elevated on admission, which was new. This should be followed as an outpatient. She did not have RUQ pain or tenderness. She was evaluated by physical therapy prior to discharge and walked without assistant prosecuting attorney Recommendations for Follow Up Recommended tests to be ordered by follow up provider: CBC, CMP 1 week Home Meds and New Rx's Prescriptions: New Eliquis 5 mg tablet 5 mg PO BID Qty: 180 0RF benzonatate 100 mg Capsule 100 mg PO TID PRN (Reason: cough) Qty: 30 0RF dextromethorphan polistirex [Delsym 12 hour] 30 mg/5 mL Suspension,Extended Rel 12 Hr 60 mg PO Q12H PRN PRNQty: 100 0RF cefpodoxime 200 mg Tablet 200 mg PO BID 2 Days Qty: 5 0RF doxycycline hyclate 100 mg Capsule 100 mg PO BID 2 Days Qty: 5 0RF guaifenesin [Mucus Relief ER] 600 mg Tablet Extended Release 12hr 600 mg PO BID Qty: 20 0RF Continued prednisone 20 mg tablet 20 mg PO DAILY PRN (Reason: gout) Patient Comments: TAKE 1 TABLET BY MOUTH DAILY sodium bicarbonate 650 mg tablet 1,300 mg PO TID Patient Comments: TAKE 2 TABLETS BY MOUTH THREE TIMES DAILY [id number] 25 mcg- 937.5 mg tablet 1 tab PO DAILY cholecalciferol (vitamin D3) 50 mcg (2,000 unit) capsule 50 mcg PO DAILY Qty: 90 3RF calcium carbonate 500 mg calcium (1,250 mg) tablet 500 mg PO DAILY Qty: 90 3RF Prolia 60 mg/mL syringe 60 mg subcut [id number] Qty: 1 2RF losartan 100 mg tablet 100 mg PO DAILY Qty: 90 3RF atorvastatin 40 mg tablet 40 mg PO DAILY Qty: 90 4RF Rx Instructions: by cardiology [facility] amlodipine 5 mg tablet 5 mg PO BID Qty: 180 4RF loperamide-simethicone [Imodium Multi-Symptom Relief] 1 EACH tablet 2 tab PO PRN PRN calcium carbonate-vitamin D3 1 EACH tablet 1 ea PO DAILY Qty: 90 acetaminophen [Tylenol] 325 MG tablet 650 mg PO TID PRNQty: 30 allopurinol 200 mg tablet 200 mg PO DAILY Qty: 90 0RF Rx Instructions: 02/28/2025 Ordered by Jackie Mills NP at [facility] [place] [place] Nephrology. -hb aspirin 325 MG tablet,delayed release (DR/EC) 325 mg PO DAILY Changed metoprolol succinate 50 mg tablet extended release 24 hr 75 mg PO DAILY Qty: 90 4RF Discharge Instructions Instructions: Atrial Fibrillation (DC), Community-Acquired Pneumonia, Adult (DC) Additional Instructions: You have a pneumonia that triggered the abnormal heart rhythm atrial fibrillation. You should finish two more days of antibiotics twice a day. You should take the blood thinner apixaban (Eliquis) twice daily to prevent clots in the heart that can lead to stroke. You should take an additional 1/2 tablet of your metoprolol succinate (total dose of 75mg per day or 1 1/2 tablets). This helps control the heart rate. Continue using the breathing devices to help break up the mucous and open the lungs. We sent a cough suppressants benzonatate (Tesslon Pearls). The other cough medicine is over the counter. It will take a couple weeks for the cough and fatigue to improve. Stand Alone Forms: Portal Information Referrals: Leda Saucedo MD [Primary Care Provider, Medicine] Referral Note: Your pcp will call you to schedule your pcp appointment, if you haven't heard from them please reach out Activity:: Activity as Tolerated Equipment/Supplies:: No Equipment Needed Diet:: As Tolerated Discharge Orders Discharge Orders: Discharge Order (Routine); Ordered 09/11/25 Ordered By: Anthony Denis DS: Summary Time Spent with Patient providing and/or coordinating discharge services: Greater than 30 minutes Status at Discharge Functional status at discharge: independent ambulation Overall status at discharge: patient is progressing back to baseline Mental Status: mental status grossly normal Speech and Movement: speech and movement normal Mood: congruent mood Affect: normal affect Quality:SDOH Health Related Social Needs: Health related social needs inadequate housing Exam Narrative Exam Narrative: Older female sitting up in bed in no acute distress, ANO x 4, heart irregularly irregular with rate 90s, lungs rales right mid chest to base, otherwise clear, abdomen soft, nontender, nondistended. Extremities without cyanosis, clubbing, or edema Psych Mental Status: mental status grossly normal Speech and Movement: speech and movement normal Mood: congruent mood Affect: normal affect DS: Data Vitals/I&O Vitals and I&O: Vital Signs Temperature 37.4 C 09/11/25 11:18 Temperature Source Temporal Artery Scan 09/11/25 11:18 Pulse 98 H 09/11/25 11:18 Pulse Rhythm Irregular 09/08/25 21:42 Pulse 118 H 09/08/25 21:50 Respiratory Rate 17 09/11/25 11:18 Respiratory Effort Normal 09/08/25 21:42 Respiratory Depth Normal 09/08/25 21:42 Respiratory Pattern Normal 09/08/25 21:42 Blood Pressure 112/67 09/11/25 11:18 Blood Pressure Mean 82 09/11/25 11:18 Blood Pressure Position Sitting 09/08/25 14:51 Pulse Oximetry 93 09/11/25 11:18 Oxygen Delivery Method Room Air 09/11/25 11:18 Oxygen Flow Rate 0 09/11/25 11:18 Pain Level 0 09/11/25 11:18 Comment apical, no chest pain reported 09/11/25 09:53 Intake & Output 09/10/25 09/11/25 09/11/25 23:59 11:59 23:59 Intake Total 240 / 360 120 / 360 Output Total 600 / 600 Balance -360 / -240 120 / -240 Weight 62.823 kg Intake: Oral 240 / 360 120 / 360 Output: Urine 600 / 600 Other: Urine Color Yellow Urine Appearance Clear Comment per pt Stool Size Moderate Moderate Stool Characteristics Formed Soft Data Completed and Pending Pending Labs at Discharge: 09/08/25 09/08/25 09/08/25 15:30 16:06 17:07 WBC 9.67 RBC 3.79 L Hgb 11.6 Hct 34.4 L MCV 91 MCH 30.6 MCHC 33.7 RDW 14.6 Plt Count 265 MPV 9.4 Immature Gran % 1.0 Neutrophils % 77.5 Lymphocytes % 13.7 Monocytes % 7.1 Eosinophils % 0.5 Basophils % 0.2 Nucleated RBC % 0.0 Absolute Neutrophils 7.49 H Absolute Lymphocytes 1.32 Absolute Monocytes 0.69 Absolute Eosinophils 0.05 Absolute Basophils 0.02 VBG Lactate 1.4 Sodium Cancelled 139 Potassium Cancelled 4.1 Chloride Cancelled 106 Carbon Dioxide Cancelled 19.9 L Anion Gap Cancelled 13.1 H BUN Cancelled 25 H Creatinine Cancelled 1.3 H Est GFR (CKD-EPI 2020) Cancelled 37.93 Glucose Cancelled 104 Calcium Cancelled 8.2 L Magnesium Cancelled 1.9 Total Bilirubin Cancelled 0.30 AST Cancelled 40 H ALT Cancelled 33 Alkaline Phosphatase Cancelled 70 Troponin I Cancelled 44 H NT-Pro-B Natriuret Pep 6981 H Total Protein Cancelled 6.5 Albumin Cancelled 3.7 Urine Color Yellow Urine Clarity Clear Urine pH 5.5 Ur Specific [place] 1.015 Urine Protein 100 H Urine Ketones Negative Urine Blood Small H Urine Nitrite Positive H Urine Bilirubin Negative Urine Urobilinogen 0.2 Ur Leukocyte Esterase Moderate H Urine RBC 20-50 H Urine WBC >50 H Ur Epithelial Cells Moderate Urine Crystals Negative Urine Bacteria Packed Urine Casts Negative Urine Mucus Trace Ur Culture Indicated? No/Sq. Contamination Urine Glucose Negative COVID-19 Source SARS-CoV-2 (PCR) Influenza Type A (PCR) Influenza Type B (PCR) RSV (PCR) MRSA (TEM-PCR) 09/08/25 09/08/25 09/09/25 17:12 17:21 06:02 WBC 9.10 RBC 3.33 L Hgb 10.0 L Hct 30.4 L MCV 91 MCH 30.0 MCHC 32.9 RDW 14.6 Plt Count 252 MPV 9.5 Immature Gran % Neutrophils % Lymphocytes % Monocytes % Eosinophils % Basophils % Nucleated RBC % Absolute Neutrophils Absolute Lymphocytes Absolute Monocytes Absolute Eosinophils Absolute Basophils VBG Lactate Sodium 141 Potassium 3.9 Chloride 109 H Carbon Dioxide 20.5 Anion Gap 11.5 H BUN 20 Creatinine 1.1 H Est GFR (CKD-EPI 2020) 48.24 Glucose 114 H Calcium 8.1 L Magnesium 1.9 Total Bilirubin AST ALT Alkaline Phosphatase Troponin I 56 H 33 NT-Pro-B Natriuret Pep Total Protein Albumin Urine Color Urine Clarity Urine pH Ur Specific [place] Urine Protein Urine Ketones Urine Blood Urine Nitrite Urine Bilirubin Urine Urobilinogen Ur Leukocyte Esterase Urine RBC Urine WBC Ur Epithelial Cells Urine Crystals Urine Bacteria Urine Casts Urine Mucus Ur Culture Indicated? Urine Glucose COVID-19 Source Nasopharynx SARS-CoV-2 (PCR) Negative Influenza Type A (PCR) Negative Influenza Type B (PCR) Negative RSV (PCR) Negative MRSA (TEM-PCR) 09/10/25 09/10/25 09/11/25 07:55 08:21 06:17 WBC 9.73 RBC 3.38 L Hgb 10.2 L Hct 31.4 L MCV 93 MCH 30.2 MCHC 32.5 RDW 14.9 H Plt Count 279 MPV 8.8 Immature Gran % 0.9 Neutrophils % 76.5 Lymphocytes % 14.0 Monocytes % 7.0 Eosinophils % 1.2 Basophils % 0.4 Nucleated RBC % 0.0 Absolute Neutrophils 7.44 H Absolute Lymphocytes 1.36 Absolute Monocytes 0.68 Absolute Eosinophils 0.12 Absolute Basophils 0.04 VBG Lactate Sodium 137 140 Potassium 4.3 4.1 Chloride 105 107 Carbon Dioxide 22.4 22.3 Anion Gap 9.6 10.7 BUN 16 16 Creatinine 1.0 1.0 Est GFR (CKD-EPI 2020) 52.72 55.26 Glucose 100 92 Calcium 8.4 8.4 Magnesium Total Bilirubin AST ALT Alkaline Phosphatase Troponin I NT-Pro-B Natriuret Pep Total Protein Albumin Urine Color Urine Clarity Urine pH Ur Specific [place] Urine Protein Urine Ketones Urine Blood Urine Nitrite Urine Bilirubin Urine Urobilinogen Ur Leukocyte Esterase Urine RBC Urine WBC Ur Epithelial Cells Urine Crystals Urine Bacteria Urine Casts Urine Mucus Ur Culture Indicated? 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 Essential hypertension (Chronic) Hyperlipidemia (Chronic) Osteoarthritis (Chronic) Medical History (Updated 09/11/25 @ 09:41 by Anthony Denis) Cataract (~01/2024) CC (collagenous colitis) [facility] [place] Gastro; : good response to Entocort/ Fup q 1year Cardiac ischemia elif-op for left TKR : ant.ST depression/slight elevation troponin / = MIBI stress test: negative and normal EF () ASA,Metoprolol started/ lipids pending Pulmonary nodule (07/03/14) highly suspicious of malignancy/ lobectomy scheduled [facility] fall 2013 Inflammatory bowel disease (ulcerative colitis) (05/01/14) not specified: followed [facility] [place]/ good control with tx prn Surgical History (Updated 02/17/25 @ 08:42 by Leda Saucedo MD) S/P cataract extraction S/P bronchoscopy with biopsy benign pathology History of bilateral ligation of fallopian tubes (07/27/14) History of carpal tunnel repair Family History Mother No problems noted. Father No problems noted. Sister No problems noted. Brother No problems noted. Son No problems noted. Daughter No problems noted. Daughter No problems noted. Social History (Updated 08/13/23 @ 09:18 by Carmelina Anderson) Smoking/Tobacco Use Status: Never Tobacco: How many years used: 0 Second Hand Exposure: No Smoking risk assessment performed?: Yes Alcohol Intake: former Drug use: Never Substance use type: does not use Counseling given: No Adopted: No Caregiver/Support person: No Household members: spouse Housing: house Number of Children: 3 number of grandchildren: 5 Communication Needs: None and Corrective Lenses Education Level: college Do you need help understanding health information?: Rarely current occupation: retired Pets and animals: Yes Pets and animals: cat(s), dog(s), bird(s) and farm animals Do you think of yourself as: straight/heterosexual What is your relationship status?: How often do you get together with friends or relatives?: once per week Do you belong to any clubs or organized social groups?: yes Panel score (0-1 are the most socially isolated patients): 2 What type of physical activity do you participate in: walking and other Details: care of animals,yard work Duration: 45-60 minutes/day Frequency: daily Special vishnu needs: No Agree to transfusion: Yes Seatbelt use: always Helmet use: No Drive intox or ride w/intox emt driver: No Working smoke detector in home: Yes Firearms in home: Yes Do you feel safe at home: Yes Do you feel safe in your relationship?: Yes Victim of physical abuse: No Victim of emotional abuse: No Victim of sexual abuse: No Would you like helpful sources: No Additional Social history: Enjoys gardening, walking her dog. History History 3 Para 3 Hx # Term Pregnancies Multiple births Hx # Pregnancies Ectopic pregnancies AB induced Hx Number of Living Children AB spontaneous Time Spent with Patient Time Spent with Patient: <45 minutes Time was spent: preparing to see the patient(eg.review tests), obtaining and/or reviewing separately otained hiistory, ordering medications,tests, procedures, referring, communicating with other health care coordinator, indepentently interpreting results, counseling the patient and care coordination
--- NOTE | 2025-09-11 16:20 | W.PC.ACHO ---
Registration Status: DIS IN Primary Language: Preferred Language: Armenian ED Information & Data Chief Complaint RespSymp 09/08/25 23:09 Triage Note loss of appetite, chills, 09/08/25 14:51 body aches, dry unproductive cough. Symptoms since Thursday Medical / Surgical History (Last Reviewed 04/15/23 @ 12:44 by Ruth Lindsey RN) Cataract (~01/2024) CC (collagenous colitis) Cardiac ischemia Pulmonary nodule (07/03/14) Inflammatory bowel disease (ulcerative colitis) (05/01/14) (Last Updated 02/17/25 @ 08:42 by Leda Saucedo MD) S/P cataract extraction S/P bronchoscopy with biopsy History of bilateral ligation of fallopian tubes (07/27/14) History of carpal tunnel repair Most Recent Vital Signs Temperature 37.4 C 09/11/25 11:18 Temperature Source Temporal Artery Scan 09/11/25 11:18 Pulse 98 H 09/11/25 11:18 Pulse Rhythm Irregular 09/08/25 21:42 Pulse 118 H 09/08/25 21:50 Respiratory Rate 17 09/11/25 11:18 Respiratory Effort Normal 09/08/25 21:42 Respiratory Depth Normal 09/08/25 21:42 Respiratory Pattern Normal 09/08/25 21:42 Blood Pressure 112/67 09/11/25 11:18 Blood Pressure Mean 82 09/11/25 11:18 Blood Pressure Position Sitting 09/08/25 14:51 Pulse Oximetry 93 09/11/25 11:18 Oxygen Delivery Method Room Air 09/11/25 11:18 Oxygen Flow Rate 0 09/11/25 11:18 Pain Level 0 09/11/25 11:18 Comment apical, no chest pain reported 09/11/25 09:53 Allergies atenolol Adverse Reaction (Verified 09/08/25 16:10) FATIGUE enalaprilat Adverse Reaction (Verified 09/08/25 16:10) COUGH IV IV Catheter Type [Right Saline Lock Antecubital] IV Catheter Type [Right Wrist] Peripheral IV IV Catheter Gauge [Right 18 Antecubital] IV Catheter Gauge [Right Wrist 18 ] Diagnostics 09/11/25 Range/Units 06:17 Sodium 140 (136-145) mmol/L Potassium 4.1 (3.5-5.1) mmol/L Chloride 107 (98-107) mmol/L Carbon Dioxide 22.3 (20.0-31.0) mmol/L Anion Gap 10.7 (3-11) mmol/L BUN 16 (9-23) mg/dL Creatinine 1.0 (0.55-1.02) mg/dL Est GFR (CKD-EPI 2020) 55.26 (mL/min/1.73m2) Glucose 92 (74-106) mg/dL Calcium 8.4 (8.3-10.6) mg/dL Intake and Output - 24 Hour Total 09/08/25 14:39 thru 09/11/25 12:19 Intake Total 5010 Output Total 1750 Balance 3260 Weight 62.823 kg Intake: IV 3050 Oral 1960 Output: Urine 1750 Other: Urine Color Yellow Urine Appearance Clear Urine Odor None Comment per pt Stool Size Moderate Stool Characteristics Soft Falls Risk Assessment History of Falls No History 09/08/25 21:42 Contributing Factors Unstable,Incontinence, 09/08/25 21:42 Medications Ambulatory Aids Uses ambulatory device 09/08/25 21:42 Tubes/Lines With any additional score 09/08/25 21:42 Gait Evaluation W/any additional score 09/08/25 21:42 Cognition No cognitive impairment 09/08/25 21:42 Fall Total Score 64 09/08/25 21:42 Level of Risk High Risk 09/08/25 21:42 Problems (Last Reviewed 04/15/23 @ 12:44 by Ruth Lindsey RN) Anxiety (Chronic) Right atrial mass (Acute) Community acquired pneumonia (Acute) UTI (urinary tract infection) (Acute) Atrial fibrillation by electrocardiogram (Acute) 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 Additional Patient Information/Comments: Report Received From: late entry, handoff signed but not saved night of admit
--- NOTE | 2025-09-11 16:48 | PDOC.CMDIS ---
Date of service: 09/11/25 Time of Service: 16:49 LACE Index Scoring Tool Questions: Length of Stay (in days): 3 Was the patient admitted via the E.D.?: Yes Comorbidities: Liver or Renal Disease E.D. Visits: 1 Answers: Total Score: 12 Risk of Readmission: High Risk Care Management Discharge Plan Reason for Hospitalization: Afib, UTI Discharge Plan: Louann returned home with no new services. She was driven home via private vehicle by family. She will follow up with her PCP and discharge plan of care. She was happy to be going home. Patient/Family Education Needs: Review discharge instructions and limitations, discussion of self care needs including ask me three. SDOH Health Related Social Needs: Health related social needs inadequate housing
== END 2025-09-11 14:36 | disposition home or self-care (01) | DRG 308 ==
LOC: ER 15:30 → MS 21:20
PROVIDERS: Admitting Provider Family Medicine; Emergency Provider General Practice; PCP Family Medicine; Responsible Provider Family Medicine; Visit Provider Family Medicine
DX: I48.91 Unspecified atrial fibrillation (principal); N39.0 Urinary tract infection, site not specified; N18.32 Chronic kidney disease, stage 3b; I12.9 Hypertensive chronic kidney disease with stage 1 through stage 4 chronic kidney disease, or unspecified chronic kidney disease; E78.2 Mixed hyperlipidemia; J18.9 Pneumonia, unspecified organism; I51.89 Other ill-defined heart diseases; F41.9 Anxiety disorder, unspecified; M1A.3411 Chronic gout due to renal impairment, right hand, with tophus (tophi); E86.0 Dehydration; M81.0 Age-related osteoporosis without current pathological fracture; Z79.899 Other long term (current) drug therapy; Z87.440 Personal history of urinary (tract) infections; M47.817 Spondylosis without myelopathy or radiculopathy, lumbosacral region; K52.9 Noninfective gastroenteritis and colitis, unspecified
CPT/HCPCS: 00123; 36415; 80048; 80053; 85027; 87637; 87641; 96361; 96365; 97162; 99285; 71045; 71046; 71260; 81003; 81015; 83605; 83735; 83880; 84484; 85025; 93306; 99223; 99233; 99239; J0696; J1650; J3490

== ENCOUNTER 2025-09-18 03:49 | Outpatient (CLI) | payer MEDICARE, SELFPAY ==
[2025-09-18 16:17] LABS: Abs Immature Grans 0.04 10^3/uL (0.0-0.06); HCT 34.1 % (36.0-46.0); HGB 10.8 g/dL (11.2-15.7); Immature Grans % 0.4 %; MCH 29.9 pg (27.0-33.0); MCHC 31.7 % (32.0-36.0); MCV 95 fL (80-95); MPV 9.0 fL (8.0-11.0); Platelet Count 424 10^3/uL (130-400); RBC 3.61 10^6/uL (3.93-5.22); RDW 14.6 % (11.7-14.6); RDW-SD 49.8 fL; WBC 9.14 10^3/uL (4.4-10.8)
[2025-09-18 16:19] LABS: Glucose Negative (Negative)
[2025-09-18 16:40] LABS: ALT 24 U/L (10-49); AST 32 U/L (<34); Albumin 4.3 g/dL (3.4-5.0); Alkaline Phosphatase 71 U/L (46-116); Anion Gap 13.4 mmol/L (3-11); BUN 24 mg/dL (9-23); Bilirubin, Total 0.40 mg/dL (0.2-1.2); CO2 24.6 mmol/L (20.0-31.0); Calcium 10.4 mg/dL (8.3-10.6); Chloride 101 mmol/L (98-107); Glucose 81 mg/dL (74-106); Potassium 4.4 mmol/L (3.5-5.1); Sodium 139 mmol/L (136-145); Total Protein 7.3 g/dL (5.7-8.2)
== END 2025-09-18 03:50 | disposition home or self-care (01) ==
LOC: LOS 03:49
PROVIDERS: PCP Family Medicine; Visit Provider Nurse Practitioner Family
DX: J18.9 Pneumonia, unspecified organism (principal); Z87.440 Personal history of urinary (tract) infections
CPT/HCPCS: 36415; 80053; 81003; 85025

== ENCOUNTER 2025-09-20 07:58 | Outpatient (CLI) | payer MEDICARE, SELFPAY ==
--- NOTE | 2025-09-20 07:45 | RT.EKG_ITS ---
APPROVED REPORT Exam: Resting ECG Reason for Exam: afib Patient Location: O HR:84 bpm ECG Measurements Heart Rate 84 AXIS [place] [id number] P [id number] QRSd 97 QRS 1 QT 367 T -47 QTc 434 Conclusion Atrial fibrillation.. Ventricular premature complex...V complex w/ short R-R interval Low voltage, extremity leads...all extremity leads <0.5mV Minimal ST depression, inferior leads...ST <-0.04mV, II III aVF
== END 2025-09-20 07:59 | disposition home or self-care (01) ==
LOC: DI.CARD 07:59
PROVIDERS: PCP Nurse Practitioner Family; Visit Provider Registered Nurse
DX: I10 Essential (primary) hypertension (principal); I49.3 Ventricular premature depolarization; I48.19 Other persistent atrial fibrillation
CPT/HCPCS: 93010

== ENCOUNTER → 2025-09-20 10:54 | Outpatient (BNVA) | payer MEDICARE, SELFPAY | PROVIDERS: PCP Nurse Practitioner Family; Referring Provider Nurse Practitioner Family; Visit Provider Registered Nurse | DX: I48.91 Unspecified atrial fibrillation (principal); I10 Essential (primary) hypertension; Z79.01 Long term (current) use of anticoagulants; Z79.02 Long term (current) use of antithrombotics/antiplatelets; Z79.899 Other long term (current) drug therapy | CPT/HCPCS: 93005; 99215 ==

== ENCOUNTER 2025-10-10 01:03 | Outpatient (RCR) | payer MEDICARE, SELFPAY ==
[2025-10-10] MEDS: Denosumab 60 MG/ML SYR SC (10:14)
== END 2025-10-25 23:59 | disposition home or self-care (01) ==
LOC: INF 01:03
PROVIDERS: PCP Nurse Practitioner Family; Visit Provider Family Medicine
DX: M81.0 Age-related osteoporosis without current pathological fracture (principal)
CPT/HCPCS: 96372; J0897

== ENCOUNTER 2025-10-12 07:57 | Day surgery (SDC) | payer MEDICARE, SELFPAY ==
--- NOTE | 2025-10-12 06:30 | RT.EKG_ITS ---
APPROVED REPORT Exam: Resting ECG Reason for Exam: PRE OP Patient Location: O HR:85 bpm ECG Measurements Heart Rate 85 AXIS [place] [id number] P [id number] QRSd 96 QRS 16 QT 373 T -38 QTc 444 Conclusion Atrial fibrillation...? atrial activity Probable anterior infarct, age indeterminate...Q >35mS, T neg, V2-V5
[2025-10-12] MEDS: Normal Saline 10 ML VIAL IJ (07:01)
--- NOTE | 2025-10-12 07:45 | RT.EKG_ITS ---
APPROVED REPORT Exam: Resting ECG Reason for Exam: POST OP Patient Location: O HR:60 bpm ECG Measurements Heart Rate 60 AXIS VT 195 P 54 QRSd 92 QRS 5 QT 420 T -3 QTc 420 Conclusion Sinus rhythm...normal P axis, V-rate 60- 99 Atrial premature complex...SV complex w/ short R-R interval Anterior infarct, old...Q >40mS, abnormal ST-T, V2-V5
[2025-10-12] MEDS: Lactated Ringers 1,000 ML 30 ML IV (07:53)
[2025-10-12 07:57] VITALS: BP 129/71; PULSE 87; RESP 16; TEMP 36.3; O2SAT 98
--- NOTE | 2025-10-12 08:10 | W.CARDVER ---
Date of service: 10/12/25 Time of Service: 08:11 Cardioversion DATE OF PROCEDURE: 10/12/25 PRE-OP DIAGNOSES: Atrial fibrillation POST-OP DIAGNOSES: same Indications: Persistent atrial fibrillation Procedure Description: Synchronized cardioversion After informed consent was obtained the patient was brought to the operating room where she was sedated by the anesthesiologist. Anterior and posterior ZOLL pads were placed. When she was adequately sedated 1 synchronized shock at 150 W seconds was delivered. She converted from atrial fibrillation rate about 90 to sinus rhythm in the 60s. There were no complications and she was brought to the recovery room.
[2025-10-12 08:12] VITALS: BP 95/40; PULSE 60; RESP 16; TEMP 36; O2SAT 96
--- NOTE | 2025-10-12 08:12 | PDOC.DSDIS_ITS ---
Date of service: 10/12/25 Discharge Plan Disposition Patient Disposition: Home Condition: Stable Discharge Details Reason For Visit: Synchronized cardioversion Attending Provider: Mariela Parks Primary Care Provider: Justyna Reed Home Meds and New Rx's Prescriptions: No Action sodium bicarbonate 650 mg tablet 1,300 mg PO TID Patient Comments: TAKE 2 TABLETS BY MOUTH THREE TIMES DAILY [id number] 25 mcg- 937.5 mg tablet 1 tab PO DAILY cholecalciferol (vitamin D3) 50 mcg (2,000 unit) capsule 50 mcg PO DAILY Qty: 90 3RF calcium carbonate 500 mg calcium (1,250 mg) tablet 500 mg PO DAILY Qty: 90 3RF Prolia 60 mg/mL syringe 60 mg subcut [id number] Qty: 1 2RF losartan 100 mg tablet 100 mg PO DAILY Qty: 90 3RF atorvastatin 40 mg tablet 40 mg PO DAILY Qty: 90 4RF Rx Instructions: by cardiology [facility] amlodipine 5 mg tablet 5 mg PO BID Qty: 180 4RF Eliquis 5 mg tablet 5 mg PO BID Qty: 180 3RF metoprolol succinate 50 mg tablet extended release 24 hr 50 mg PO DAILY Qty: 90 4RF Rx Instructions: To take with a 25 mg tablet for total daily dose of 75 mg metoprolol succinate 25 mg tablet extended release 24 hr 25 mg PO DAILY Qty: 90 3RF Rx Instructions: Take with 50 mg tablet for total dose of 75 mg daily. loperamide-simethicone [Imodium Multi-Symptom Relief] 1 EACH tablet 2 tab PO PRN PRN calcium carbonate-vitamin D3 1 EACH tablet 1 ea PO DAILY Qty: 90 acetaminophen [Tylenol] 325 MG tablet 650 mg PO TID PRNQty: 30 allopurinol 200 mg tablet 200 mg PO DAILY Qty: 90 0RF Rx Instructions: 02/28/2025 [place] by Jackie Mills NP [place] [facility] [place] [facility] [place] -hb aspirin 325 MG tablet,delayed release (DR/EC) 325 mg PO DAILY benzonatate 100 mg Capsule 100 mg PO TID PRN (Reason: cough) Qty: 30 0RF dextromethorphan polistirex [Delsym 12 hour] 30 mg/5 mL Suspension,Extended Rel 12 Hr 60 mg PO Q12H PRN PRNQty: 100 0RF guaifenesin [Mucus Relief ER] 600 mg Tablet Extended Release 12hr 600 mg PO BID Qty: 20 0RF Discharge Instructions Stand Alone Forms: [facility] Cardioversion Post-Op, Portal Information Activity:: Activity as Tolerated Diet:: As Tolerated DS: Diagnosis Discharge Diagnosis (1) Atrial fibrillation by electrocardiogram: Status: Acute
--- NOTE | 2025-10-12 08:16 | W.ANESPOSTOP ---
Postoperative Evaluation Date, Time and Location Date Performed: 10/12/25 Time Performed: 08:17 Patient Location: Day Surgery Unit Vital Signs Most Recent Imported Vital Signs: Most Recent Vital Signs Temp Pulse Resp BP Pulse Ox 36 C L 60 16 95/40 L 96 10/12/25 08:12 10/12/25 08:12 10/12/25 08:12 10/12/25 08:12 10/12/25 08:12 Pain Score Most Recent Pain Score: Most Recent Pain Score Pain Level 0 10/12/25 08:12 Assessment Mental Status: Awake (Alert & Oriented to Patient Baseline) Airway and Respiratory Function: Patent airway with normal (patient baseline) respiratory exam Cardiovascular Function: Hemodynamically Stable Hydration Status: Adequately Hydrated Nausea & Vomiting: No Nausea or Vomiting Pain: Pt. Denies Any Pain Peripheral Nerve Block: Patient did not receive a nerve block
--- NOTE | 2025-10-12 08:32 | W.ANESPRE ---
General Info Date of Service Date Performed: 10/12/25 Height: 5 ft Weight: 61 kg Body Mass Index (BMI): 26.2 Surgical Procedure: Operation Date: 10/12/25 07:30 Proposed Procedure Side Surgeon p Cardioversion Mariela Parks MD Meds Allergies and Home Medications Allergies Allergy/AdvReac Type Severity Reaction Status Date / Time atenolol AdvReac FATIGUE Verified 10/10/25 14:05 enalaprilat AdvReac COUGH Verified 10/10/25 14:05 Home Medication ?Medication ?Instructions ?Recorded loperamide 2 mg-simethicone 125 mg 2 tab PO PRN PRN 05/01/14 tablet (Imodium Multi-Symptom Relief) calcium 1,000 mg (as 1 ea PO DAILY #90 tab-caps 11/13/16 carbonate)-vitamin D3 20 mcg (800 unit) tablet aspirin 325 mg tablet,delayed 325 mg PO DAILY 04/08/18 release acetaminophen 325 mg tablet 650 mg PO TID PRN #30 tab-caps 05/20/18 (Tylenol) [id number]-zyn-mozyhwtnuii-vit 1 tab PO DAILY 05/01/23 D3-Boswellia 25 mcg-937.5 mg tablet sodium bicarbonate 650 mg tablet 1,300 mg PO TID 08/19/24 calcium carbonate 500 mg PO DAILY #90 tabs 02/17/25 cholecalciferol (vitamin D3) 50 50 mcg PO DAILY #90 caps 02/17/25 mcg (2,000 unit) capsule allopurinol 200 mg tablet 200 mg PO DAILY #90 tabs 03/06/25 amlodipine 5 mg tablet 5 mg PO BID #180 tab-caps 09/01/25 atorvastatin 40 mg tablet 40 mg PO DAILY #90 tab-caps 09/01/25 denosumab 60 mg/mL subcutaneous 60 mg subcut [id number] #1 mL 09/01/25 syringe (Prolia) losartan 100 mg tablet 100 mg PO DAILY #90 tabs 09/01/25 benzonatate 100 mg capsule 100 mg PO TID PRN cough #30 caps 09/11/25 dextromethorphan polistirex 30 60 mg (10 mL) PO Q12H PRN PRN #100 09/11/25 mg/5 mL oral susp ext.release 12hr mL (Delsym 12 hour) guaifenesin 600 mg tablet, 600 mg PO BID #20 tabs 09/11/25 extended release 12 hr (Mucus Relief ER) apixaban 5 mg tablet (Eliquis) 5 mg PO BID #180 tabs 09/18/25 metoprolol succinate 25 mg 25 mg PO DAILY #90 tabs 09/18/25 tablet,extended release 24 hr metoprolol succinate 50 mg 50 mg PO DAILY #90 tabs 09/18/25 tablet,extended release 24 hr Current Visit Medications: Current Medications Generic Name Dose Route Start Last Admin Trade Name Freq PRN Reason Stop Dose Admin Acetaminophen 650 mg 10/12/25 08:14 Acetaminophen 325 Mg Tab PO 11/11/25 08:13 TID PRN Amlodipine Besylate 5 mg 10/12/25 08:30 Amlodipine 5 Mg Tab PO 11/11/25 08:29 BID [facility] Apixaban 5 mg 10/12/25 08:30 Apixaban 5 Mg Tab PO 11/11/25 08:29 BID [facility] Aspirin 325 mg 10/12/25 08:30 Aspirin E.C. 325 Mg Tabec PO 11/11/25 08:29 DAILY [facility] Atorvastatin Calcium 40 mg 10/12/25 08:30 Atorvastatin 40 Mg Tab PO 11/11/25 08:29 DAILY [facility] Benzonatate 100 mg 10/12/25 08:14 Benzonatate 100 Mg Cap PO 11/11/25 08:13 TID PRN Cough Calcium Carbonate 0.5 gm 10/12/25 08:30 Calcium Carbonate 1.25 Gm Tab PO 11/11/25 08:29 DAILY [facility] Dextromethorphan Polistirix 60 mg 10/12/25 08:14 Dextromethorphan 6 Mg/Ml Suspension PO 11/11/25 08:13 Q12H PRN PRN Guaifenesin 600 mg 10/12/25 08:30 Guaifenesin 600 Mg Tabcr PO 11/11/25 08:29 BID [facility] Ringer's Solution 1,000 mls @ 30 mls/hr 10/12/25 08:15 IV 11/11/25 08:14 INFUSION [facility] Metoprolol Succinate 25 mg 10/12/25 08:30 Metoprolol Cr 25 Mg Tabcr PO 11/11/25 08:29 DAILY [facility] Metoprolol Succinate 50 mg 10/12/25 08:30 Metoprolol Cr 50 Mg Tabcr PO 11/11/25 08:29 DAILY [facility] Non-Formulary Medication 200 mg 10/12/25 08:30 Allopurinol PO 11/11/25 08:29 DAILY [facility] Non-Formulary Medication 1 each 10/12/25 08:30 Calcium Carbonate-Vitamin D3 PO 11/11/25 08:29 DAILY [facility] Non-Formulary Medication 50 mcg 10/12/25 08:30 Cholecalciferol (Vitamin D3) PO 11/11/25 08:29 DAILY [facility] Non-Formulary Medication 60 mg 10/12/25 08:15 Denosumab [Prolia] SC 11/11/25 08:14 [id number] [facility] Non-Formulary Medication 1 tab 10/12/25 08:30 Oiowrscyjea-Kgp-Iwflau-D3-Bosw PO 11/11/25 08:29 DAILY [facility] Non-Formulary Medication 2 tab 10/12/25 08:14 Loperamide-Simethicone [Imodium Multi-Symptom Relief] PO PRN PRN Non-Formulary Medication 100 mg 10/12/25 08:30 Losartan PO 11/11/25 08:29 DAILY [facility] Sodium Bicarbonate 1,300 mg 10/12/25 08:30 Sodium Bicarbonate 650 Mg Tab PO 11/11/25 08:29 TID [facility] Sodium Chloride 0 ml 10/12/25 06:00 Normal Saline Flush 10 Ml Syr IV 10/12/25 23:59 PRN PRN Sodium Chloride 0 ml 10/12/25 06:00 10/12/25 07:01 Normal Saline 10 Ml Vial IJ 10/12/25 23:59 10 ml DIRECTED PRN Administration Sterile Water 0 ml 10/12/25 06:00 Water,Injection,Sterile 10 Ml Vial IJ 10/12/25 23:59 DIRECTED PRN PFSH Active Problems Active Problems: Problem Status Onset Code Community acquired pneumonia Acute J18.9 Atrial fibrillation by electrocardiogram Acute I48.91 Osteoporosis Chronic 01/2025 M81.0 History of recurrent UTIs Acute Z87.440 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), wet Acute ~01/2024 H35.3290 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 Acute M1A.3491 Hypertensive kidney disease with stage 3b chronic kidney disease Acute I12.9, N18.32 Lumbosacral spondylosis without myelopathy Chronic M47.817 Anterolisthesis of lumbosacral spine Chronic M43.17 Essential hypertension Chronic I10 Osteoarthritis Chronic M19.90 Medical History Medical History UTI (urinary tract infection) Hyperlipidemia Cataract (~01/2024) CC (collagenous colitis) [facility] [place] Gastro; : good response to Entocort/ Fup q 1year Cardiac ischemia elif-op for left TKR : ant.ST depression/slight elevation troponin / = MIBI stress test: negative and normal EF () ASA,Metoprolol started/ lipids pending Pulmonary nodule (07/03/14) highly suspicious of malignancy/ lobectomy scheduled [facility] fall 2013 Inflammatory bowel disease (ulcerative colitis) (05/01/14) not specified: followed [facility] [place]/ good control with tx prn Surgical History Surgical History (Updated 10/10/25 @ 14:02 by Erich Patel) Hx of foot surgery History of left knee replacement S/P cataract extraction S/P bronchoscopy with biopsy benign pathology History of bilateral ligation of fallopian tubes (07/27/14) History of carpal tunnel repair Tobacco Smoking/Tobacco Use Status: Never Passive smoking exposure: No (not much) Second hand exposure: No Alcohol Alcohol Intake: former Substance Use Substance use: Never Substance use type: does not use Prental History History 3 Para 3 Hx # Term Pregnancies Multiple births Hx # Pregnancies Ectopic pregnancies AB induced Hx Number of Living Children AB spontaneous Vital Signs and Lab Results Vital Signs Most Recent Vital Signs in EMR: Most Recent Vital Signs Temp Pulse Resp BP Pulse Ox 36 C L 60 16 95/40 L 96 10/12/25 08:12 10/12/25 08:12 10/12/25 08:12 10/12/25 08:12 10/12/25 08:12 Lab Results Complete Blood Count: WBC, (4.4-10.8) 9.14 10^3/uL 09/18/25, 11:54 RBC, (3.93-5.22) 3.61 10^6/uL L 09/18/25, 11:54 Hgb, (11.2-15.7) 10.8 g/dL L 09/18/25, 11:54 Hct, (36.0-46.0) 34.1 % L 09/18/25, 11:54 Plt Count, (130-400) 424 10^3/uL H 09/18/25, 11:54 Complete Metabolic Panel: Sodium, (136-145) 139 mmol/L 09/18/25, 11:54 Potassium, (3.5-5.1) 4.4 mmol/L 09/18/25, 11:54 Chloride, (98-107) 101 mmol/L 09/18/25, 11:54 Carbon Dioxide, (20.0-31.0) 24.6 mmol/L 09/18/25, 11:54 BUN, (9-23) 24 mg/dL H 09/18/25, 11:54 Creatinine, (0.55-1.02) 1.32 mg/dL H 09/18/25, 11:54 Est GFR (CKD-EPI 2020), (mL/min/1.73m2) 38.26 09/18/25, 11:54 Calcium, (8.3-10.6) 10.4 mg/dL 09/18/25, 11:54 Albumin, (3.4-5.0) 4.3 g/dL 09/18/25, 11:54 Glucose, (74-106) 81 mg/dL 09/18/25, 11:54 Liver Function Panel: ALT, (10-49) 24 U/L 09/18/25, 11:54 AST, (<34) 32 U/L 09/18/25, 11:54 Anesthesia Assessment and Plan Anesthesia History Personal History: No History of Anesthesia Complications Family History: No Family History of Anesthesia Complications Exercise Tolerance Exercise Tolerance: Metabolic Equivalents>4 Pertinent Negatives Pertinent Negatives: No Symptoms of GERD, No Major Cardiovascular Symptoms or Complaints and No Major Pulmonary Symptoms or Complaints Cardiac & Pulmonary Exam Cardiac Exam: Normal S1/S2 Heart Sounds Pulmonary Exam: Clear Bilateral Breath Sounds Cardiac and Pulmonary Comment:: ID approx 7 yrs ago Implantable Cardiac Device Does patient have a Pacemaker or an ICD?: No Airway Exam Known Difficult Airway: No Mallampati Class: 2 Mouth Opening: Normal (> 3cm) Thyromental Distance: Greater than 3 cm Neck Range of Motion: Full ROM Neck Circumference: Normal Teeth Condition: Normal Dentition ASA Classification ASA Score: ASA 2 Emergency Case?: No NPO Status NPO Status: NPO Clears >2 hours, Solids >8 hours Anesthesia Plan Resuscitation Status: Full Code Anesthesia Technique: General Anesthesia Airway Planned: Natural Airway Monitors Used: Standard Monitors Preoperative Comments:: Preop EKG a fib
[2025-10-12 08:36] VITALS: BMI 26.2
[2025-10-12 08:42] VITALS: BP 133/67; PULSE 63; RESP 18; TEMP 36; O2SAT 95
== END 2025-10-12 08:52 | disposition home or self-care (01) ==
PROVIDERS: PCP Nurse Practitioner Family; Visit Provider Internal Medicine Cardiovascular Disease
PROC: 5A2204Z Restoration of Cardiac Rhythm, Single (ICD-10-PCS; CPT 92960; principal; 2025-10-12 07:30)
DX: I48.91 Unspecified atrial fibrillation (principal)
CPT/HCPCS: 92960; 93005; 93010; J2003; J2704